=== PATIENT | male | born 1955 | race Caucasian/White ===

== ENCOUNTER 2016-05-15 12:53 | Inpatient (IN) | payer MEDICAID ==
--- NOTE | 2016-05-15 13:22 | EDPHY ---
H & P Time Seen by Provider: 05/15/16 13:14 HPI/ROS: CHIEF COMPLAINT: Shortness of breath and cough. HISTORY OF PRESENT ILLNESS: This is a 61-year-old male with a history of pneumonia who presents with one week of shortness of breath. Onset of a productive cough 1 week ago. The shortness of breath began as chest congestion a week ago and has gradually worsened since then. He is now short of breath at rest. Similar to prior episode of pneumonia. He did not get a flu shot this year. He denies fever, abdominal pain or other complaints. He is a heavy smoker. REVIEW OF SYSTEMS: A complete 10-point review of systems was performed and is negative except for those items mentioned in the HPI. Past Medical/Surgical History: Hypertension, hernia surgery. Social History: Lives in [place] Smoking Status: Heavy smoker Physical Exam: General Appearance: Alert, nontoxic-appearing Eyes: Pupils equal and round, no conjunctival pallor or injection ENT, Mouth: Mucous membranes moist Neck: Normal inspection Respiratory: Diffuse expiratory wheezing especially at left base. Cardiovascular: Regular rate and rhythm Gastrointestinal: Abdomen is soft and non-tender Neurological: A&O, nonfocal exam Skin: Warm and dry, no rash Extremities: Nontender, no pedal edema Psychiatric: Mood and affect normal Constitutional: Initial Vital Signs Temperature (C) 37.7 C 05/15/16 13:07 Heart Rate 91 05/15/16 13:07 Respiratory Rate 18 05/15/16 13:07 Blood Pressure 141/104 H 05/15/16 13:07 O2 Sat (%) 94 05/15/16 13:07 O2 Delivery Mode Nasal Cannula O2 (L/minute) 4 Allergies/Adverse Reactions: lisinopril Allergy (Unknown, Verified 12/05/12 13:55) meperidine HCl [From Demerol] Allergy (Unknown, Verified 12/05/12 13:55) Home Medications: Medication Instructions Recorded Diltiazem HCl [Cartia XT 240mg] 240 mg PO DAILY 05/15/16 Fluticasone/Salmeter 250/50Mcg 1 puffs IH BID 05/15/16 [Advair 250/50 (*)] Tiotropium Inhaler [Spiriva 18 mcg IH HS 05/15/16 Handihaler] Medical Decision Making - Diagnostics Imaging: Chest x-ray reviewed by me reveals right lower lobe infiltrate. ED Course/Re-evaluation: This patient presents with hypoxia, bronchospasm and likely pneumonia. An IV was established and labs ordered. A DuoNeb and Solu-Medrol 125 mg IV given. Chest x-ray reveals a right-sided infiltrate. Decreased wheezing after the DuoNeb. 1345: WBC elevated at 13.85. Lactic acid elevated at 2.2. Severe sepsis declared. IV fluids given per the sepsis protocol. Levaquin 750 mg IV given. I consulted with the hospitalist at this time. Admission was accepted to Med/ Surg with Dr. Frost. 1445: Repeat lactate acid level is 1.3. No episodes of hypotension or tachycardia while in the emergency department. Differential Diagnosis: Differential diagnosis includes though it is not limited to pneumothorax, pulmonary embolism, aortic dissection, pericarditis, acute coronary syndrome. - Data Points Laboratory Results: Laboratory Results 05/15/16 12:59 05/15/16 12:59 Medications Given: Discontinued Medications Albuterol/Ipratropium (Duoneb) 3 ml IH EDNOW ONE Stop: 05/15/16 13:44 Last Admin: 05/15/16 14:06 Dose: 3 ml Levofloxacin/Dextrose (Levaquin 750 Mg (Premix)) 150 mls @ 100 mls/hr IV EDNOW ONE PRN Reason: Protocol Stop: 05/15/16 15:11 Last Admin: 05/15/16 15:28 Dose: 150 mls Influenza Virus Vaccine Quadrival (Fluarix Quad [id number] Syringe) 0.5 ml IM .ONCE ONE Stop: 05/15/16 21:01 Last Admin: 05/15/16 23:31 Dose: Not Given Methylprednisolone Sodium Succinate (Solu-Medrol) 125 mg IVP EDNOW ONE Stop: 05/15/16 13:44 Last Admin: 05/15/16 14:06 Dose: 125 mg Pneumococcal Polyvalent Vaccine (Pneumovax 23) 0.5 ml IM .ONCE ONE Stop: 05/15/16 21:01 Last Admin: 05/15/16 23:28 Dose: Not Given Sodium Chloride (Ns *For Sepsis Order Set Only*) 1,851 ml IV EDNOW ONE Stop: 05/15/16 13:43 Last Admin: 05/15/16 14:06 Dose: 1,851 ml Departure - Departure Disposition: [facility] Acute Clinical Impression: Severe sepsis, Chronic obstructive pulmonary disease with acute exacerbation Right lower lobe pneumonia Qualifiers: Qualifier Code: (J18.1) Lobar pneumonia, unspecified organism Condition: Fair Report Scribed for: Adia Kimball Report Scribed by: Cristóbal Solis Date of Report: 05/15/16 Time of Report: 13:22 Physician Review and Approval Statement: 05/15/16 13:22 Portions of this note were transcribed by a medical charge entry specialist. I personally performed a history, physical exam, medical decision making, and confirmed accuracy of information the transcribed note.
[2016-05-15 13:25] LABS: % IMMATURE GRANULYOCYTES 0.8 % (0.0-1.1); ABSOLUTE IMMATURE GRANULOCYTES 0.11 10^3/uL (0.00-0.10); ADD DIFF? NO; ADD MORPH? NO; ADD SCAN? NO; ATYPICAL LYMPHOCYTE FLAG 10 (0-99); FRAGMENT RBC FLAG 0 (0-99); HEMATOCRIT 40.6 % (40.0-51.0); HEMOGLOBIN 14.8 g/dL (13.7-17.5); LEFT SHIFT FLG 10 (0-99); LIPEMIA HEMOLYSIS FLAG 90 (0-99); MEAN CELL HEMOGLOBIN 34.2 pg (27.9-34.1); MEAN CELL HEMOGLOBIN CONCENTR. 36.5 g/dL (32.4-36.7); MEAN CELL VOLUME 93.8 fL (81.5-99.8); MEAN PLATELET VOLUME 8.8 fL (8.7-11.7); PLATELET CLUMPS FLAG 30 (0-99); PLATELET COUNT 331 10^3/uL (150-400); RED BLOOD CELL COUNT 4.33 10^6/uL (4.40-6.38)
[2016-05-15] MEDS ORDERED: NS 1,000 ML BAG *FOR SEPSIS ORDER SET ONLY IV ONE (13:42)
[2016-05-15] MEDS ORDERED: IPRATROPIUM/ALBUTEROL 3 ML DEYVIAL IH ONE (13:43)
[2016-05-15] MEDS ORDERED: methylPREDNISolone SOD SUCC 125 MG/2 ML VIAL IVP ONE (13:43)
[2016-05-15 13:44] LABS: ANION GAP 11 mEq/L (8-16); BILIRUBIN,TOTAL 0.8 mg/dL (0.1-1.4); CALCIUM 8.5 mg/dL (8.5-10.4); CARBON DIOXIDE 30 mEq/l (22-31); CHLORIDE 86 mEq/L (97-110); CREATININE 0.5 mg/dL (0.7-1.3); GLOMERULAR FILTRATION RATE > 60; GLUCOSE 93 mg/dL (70-100); POTASSIUM 3.8 mEq/L (3.5-5.2); SODIUM 127 mEq/L (134-144)
--- NOTE | 2016-05-15 14:02 | DX ---
PA and lateral chest - May 15, 2016 History: Hypoxia, possible pneumonia. Comparison: PA and lateral chest November 27, 2014, CT chest November 19, 2014. Findings: There is diffuse interstitial prominence with patchy opacities in the right midlung. There is no pneumothorax or pleural effusion. Heart size is normal. Old healed rib fractures are present. Impression: Patchy opacities in the right midlung suspicious for pneumonia superimposed on underlying emphysema.
[2016-05-15 14:20] LABS: LACGHOST ORDER
[2016-05-15 14:41] LABS: INR 1.13 (0.83-1.16); PROTIME(PATIENT) 14.4 SEC (12.0-15.0)
[2016-05-15 14:42] LABS: APTT 25.8 SEC (23.0-38.0)
[2016-05-15] MEDS ORDERED: ONDANSETRON 4 MG/2 ML VIAL IVP PRN (15:09)
[2016-05-15] MEDS ORDERED: ACETAMINOPHEN 325 MG TAB PO PRN (15:09)
[2016-05-15] MEDS ORDERED: ALBUTEROL 3 ML DEYVIAL IH PRN (15:09)
--- NOTE | 2016-05-15 16:04 | PDGENHP ---
History and Physical History and Physical: HISTORY AND PHYSICAL ADMISSION NOTE CC: Shortness of breath HISTORY: Onset of cough and dyspnea a week ago with rapid progression of the dyspnea to the point it is very difficult to walk across room. No chest pain, palp's, leg pain or swelling, orthopnea. He is a smoker with copd, no heart disease. Still smoking which he started as teenager. Lives in [facility]. No fever. No flu vaccine and no hx of pneumovaccine. ROS:No nausea, chills or sweats. The rest of a 10 system review is negative. PAST MEDICAL HISTORY: COPD pneumonia Severe hyponatremia, with sodium of 110 FAMILY MEDICAL HISTORY: COPD, alcohol use SOCIAL HISTORY: Ongoing tobacco use and heavy alcohol use, no street drugs, lives [place] in [place] MEDICATIONS: Home med list is reconciled by pharmacy and I have reviewed the list and ordered appropriate meds. Ipatrop. inhaler held as he will get scheduled duonebs. 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 No CHF, mass, effusion. There are some subtle densities in the right lower lobe that could potentially be infiltrate. ASSESSMENT: DIAGNOSES: # ACUTE RESP FAILURE, HYPOXEMIC # COPD EXACERBATION # SUSPECTED LOWER RESP INFECTION, POSSIBLE COMMUNITY AQUIRED PNEUMONIA (CXR EQUIVACOL) # HYPONATREMIA, APPROXIMATELY EUVOLEMIC WITH PAST HISTORY OF SODIUM LOW 110 # I DO NOT THINK HE HAS SEPSIS # ONGOING TOBACCO ABUSE PLANS: -inpt admission, will need more than 48 hours inpt care to be safe for DC back to home at altitude -yanci marte (cxs are done) -bronchodilators, steroids, chest PT -dvt prophylaxis including lovenox -oral fluid restriction, and follow sodium closely -Thiamin replacement therapy and follow closely for any signs of potential alcohol withdrawal -Check TSH I have reviewed the patient's case in detail with Dr. Adia Kimball I have reviewed the patient's past medical records as part of this assessment, including past hospital records including physician notes, laboratory data
[2016-05-15] MEDS: IPRATROPIUM/ALBUTEROL 3 ML DEYVIAL IH SCH ×2 (17:16→21:44)
[2016-05-15] MEDS: THIAMINE HCL 100 MG TAB PO SCH (17:32)
[2016-05-15] MEDS ORDERED: PNEUMOCOCCAL 0.5ML VACCINE VIAL IM ONE (21:00)
[2016-05-15] MEDS ORDERED: FLU VACC QS 2016-17(3-64YR)/PF 0.5 ML SYR (FLUARIX QUAD) IM ONE (21:00)
[2016-05-15] MEDS: FLUTICASONE/SALMETER 250/50MCG DISKUS IH SCH (22:53)
[2016-05-15] MEDS: ZOLPIDEM TARTRATE 5 MG TAB PO PRN (23:19)
[2016-05-16] MEDS ORDERED: BENZONATATE 100 MG CAP PO PRN (01:22)
[2016-05-16] MEDS ORDERED: guaiFENesin/CODEINE PHOS 10 ML UDCUP PO PRN (01:22)
[2016-05-16] MEDS: IPRATROPIUM/ALBUTEROL 3 ML DEYVIAL IH SCH ×4 (05:44→21:31)
[2016-05-16 05:46] LABS: % IMMATURE GRANULYOCYTES 1.4 % (0.0-1.1); ABSOLUTE IMMATURE GRANULOCYTES 0.14 10^3/uL (0.00-0.10); ADD DIFF? NO; ADD MORPH? NO; ADD SCAN? NO; ATYPICAL LYMPHOCYTE FLAG 30 (0-99); FRAGMENT RBC FLAG 0 (0-99); HEMATOCRIT 36.9 % (40.0-51.0); HEMOGLOBIN 13.1 g/dL (13.7-17.5); LEFT SHIFT FLG 40 (0-99); LIPEMIA HEMOLYSIS FLAG 90 (0-99); MEAN CELL HEMOGLOBIN 34.3 pg (27.9-34.1); MEAN CELL HEMOGLOBIN CONCENTR. 35.5 g/dL (32.4-36.7); MEAN CELL VOLUME 96.6 fL (81.5-99.8); MEAN PLATELET VOLUME 8.6 fL (8.7-11.7); PLATELET CLUMPS FLAG 10 (0-99); PLATELET COUNT 256 10^3/uL (150-400); RED BLOOD CELL COUNT 3.82 10^6/uL (4.40-6.38)
[2016-05-16 06:09] LABS: ANION GAP 9 mEq/L (8-16); CALCIUM 8.6 mg/dL (8.5-10.4); CARBON DIOXIDE 30 mEq/l (22-31); CHLORIDE 90 mEq/L (97-110); CREATININE 0.5 mg/dL (0.7-1.3); GLOMERULAR FILTRATION RATE > 60; GLUCOSE 150 mg/dL (70-100); POTASSIUM 3.4 mEq/L (3.5-5.2); SODIUM 129 mEq/L (134-144)
[2016-05-16] MEDS: THIAMINE HCL 100 MG TAB PO SCH (09:10)
[2016-05-16] MEDS: DILTIAZEM XR 240 MG CAP PO SCH (09:10)
[2016-05-16] MEDS: predniSONE 20 MG TAB PO SCH (09:10)
[2016-05-16] MEDS: ENOXAPARIN 40 MG/0.4 ML SYR SC SCH (09:11)
[2016-05-16] MEDS: AZITHROMYCIN IV 500 MG in D5W 250 ML IV SCH (09:46)
[2016-05-16] MEDS: FLUTICASONE/SALMETER 250/50MCG DISKUS IH SCH ×2 (12:06→21:31)
--- NOTE | 2016-05-16 19:06 | HOSPPROG ---
Hospitalist Progress Note Assessment/Plan: DIAGNOSIS: # ACUTE RESP FAILURE, HYPOXEMIC # COPD EXACERBATION # SUSPECTED LOWER RESP INFECTION, POSSIBLE COMMUNITY AQUIRED PNEUMONIA (CXR EQUIVACOL) # HYPONATREMIA, APPROXIMATELY EUVOLEMIC WITH PAST HISTORY OF SODIUM LOW 110 # I DO NOT THINK HE HAS SEPSIS # ONGOING TOBACCO ABUSE Overall there is slight improvement from yesterday. No signs of acute complications. PLANS: -continue current antibiotics -continue current pulmonary medications and pulmonary toilet -attempt ambulation later today if he feels well enough -continue oral fluid restriction and monitor sodium SUBJECTIVE: Slightly less dyspnea today with less cough. Cough is still nonproductive. No chest pain no fever symptoms OBJECTIVE Vitals reviewed: Still requiring oxygen, remains tachycardic, Exam: alert oriented skin warm dry color ok resps not labored lungs very diminished breath sounds with prolonged expiration heart regular abd soft nondistended nontender, bowel sounds present limbs warm, no edema iv site ok Laboratory data: Sodium is a bit better today labs otherwise stable Objective: Vital Signs Temp Pulse Resp BP Pulse Ox 36.9 C 88 18 124/83 H 95 05/16/16 16:00 05/16/16 16:43 05/16/16 16:43 05/16/16 16:00 05/16/16 16:43 Laboratory Results 05/16/16 04:57 05/16/16 04:57 05/15/16 05/16/16 05/17/16 06:59 06:59 06:59 Intake Total 1200 700 Output Total 2450 850 Balance -1250 -150 PT 14.4 SEC (12.0-15.0) 05/15/16 14:20 INR 1.13 (0.83-1.16) 05/15/16 14:20 ICD10 Worksheet Patient Problems: Problems Problem Status Diagnosed Chronic obstructive pulmonary disease with acute exacerbation Acute Right lower lobe pneumonia Acute Severe sepsis Acute Rib fractures Acute
[2016-05-16] MEDS: ZOLPIDEM TARTRATE 5 MG TAB PO PRN (22:20)
[2016-05-17 05:36] LABS: ANION GAP 8 mEq/L (8-16); CALCIUM 8.9 mg/dL (8.5-10.4); CARBON DIOXIDE 33 mEq/l (22-31); CHLORIDE 92 mEq/L (97-110); CREATININE 0.5 mg/dL (0.7-1.3); GLOMERULAR FILTRATION RATE > 60; GLUCOSE 115 mg/dL (70-100); POTASSIUM 3.3 mEq/L (3.5-5.2); SODIUM 133 mEq/L (134-144)
[2016-05-17] MEDS: IPRATROPIUM/ALBUTEROL 3 ML DEYVIAL IH SCH ×4 (06:13→20:47)
[2016-05-17] MEDS: predniSONE 20 MG TAB PO SCH (08:04)
[2016-05-17] MEDS: DILTIAZEM XR 240 MG CAP PO SCH (08:05)
[2016-05-17] MEDS: THIAMINE HCL 100 MG TAB PO SCH (08:06)
[2016-05-17] MEDS: ENOXAPARIN 40 MG/0.4 ML SYR SC SCH (08:07)
[2016-05-17] MEDS: AZITHROMYCIN IV 500 MG in D5W 250 ML IV SCH (09:10)
[2016-05-17] MEDS: FLUTICASONE/SALMETER 250/50MCG DISKUS IH SCH ×2 (09:43→20:47)
--- NOTE | 2016-05-17 15:32 | HOSPPROG ---
Hospitalist Progress Note Assessment/Plan: 61-year-old male presents emergency room complaints of shortness of breath and cough. This is my 1st encounter with the patient, chart reviewed. Patient discussed with Dr. Mingo Mejía. # ACUTE RESP FAILURE, HYPOXEMIC Continue supplemental oxygen Still on 4 L Continue supportive management Told patient he may require long-term oxygen therapy he is not open to this He lives in [place] at elevated altitude # COPD EXACERBATION Continue prednisone Still having wheezing # SUSPECTED LOWER RESP INFECTION, POSSIBLE COMMUNITY AQUIRED PNEUMONIA (CXR EQUIVACOL) Continue antibiotic therapy # HYPONATREMIA, APPROXIMATELY EUVOLEMIC WITH PAST HISTORY OF SODIUM LOW 110 Better today Responding to fluid Likely at baseline # ONGOING TOBACCO ABUSE Patient aware of consequences Tobacco cessation education provided No signs of acute complications. PLANS: -continue current antibiotics -continue current pulmonary medications and pulmonary toilet -attempt ambulation later today if he feels well enough -continue oral fluid restriction and monitor sodium Subjective: Feeling better today. Still having some shortness of breath with significant coughing. Still having severe weakness and inability to move at baseline. Objective: Vital Signs Temp Pulse Resp BP Pulse Ox 36.9 C 101 H 20 135/80 H 90 L 05/17/16 12:00 05/17/16 12:00 05/17/16 12:00 05/17/16 12:00 05/17/16 12:00 Laboratory Results 05/16/16 04:57 05/17/16 05:13 05/16/16 05/17/16 05/18/16 05:59 05:59 05:59 Intake Total 1200 2200 500 Output Total 2450 3075 1100 Balance -1250 -875 -600 PT 14.4 SEC (12.0-15.0) 05/15/16 14:20 INR 1.13 (0.83-1.16) 05/15/16 14:20 - Physical Exam Constitutional: appears nourished, not in pain, chronically ill appearing Eyes: PERRL, anicteric sclera, EOMI Ears, Nose, Mouth, Throat: moist mucous membranes, hearing normal, ears appear normal Cardiovascular: tachycardia, No JVD, No edema Respiratory: no respiratory distress, reduced air movement, expiratory wheeze Gastrointestinal: normoactive bowel sounds, No tenderness, No ascites Skin: warm, normal color, No erythema Musculoskeletal: normal joint ROM, no joint effusions, generalized weakness Neurologic: AAOx3 Psychiatric: not anxious, not encephalopathic, thought process linear ICD10 Worksheet Patient Problems: Problems Problem Status Diagnosed Chronic obstructive pulmonary disease with acute exacerbation Acute Right lower lobe pneumonia Acute Severe sepsis Acute Rib fractures Acute
[2016-05-17] MEDS ORDERED: POTASSIUM CL 20 MEQ TAB PO ONE (16:00)
[2016-05-17] MEDS: ZOLPIDEM TARTRATE 5 MG TAB PO PRN (22:30)
[2016-05-18] MEDS: IPRATROPIUM/ALBUTEROL 3 ML DEYVIAL IH SCH ×4 (06:09→22:03)
[2016-05-18] MEDS: FLUTICASONE/SALMETER 250/50MCG DISKUS IH SCH ×2 (06:17→22:03)
--- NOTE | 2016-05-18 08:59 | HOSPPROG ---
Hospitalist Progress Note Assessment/Plan: 61-year-old male presents emergency room complaints of shortness of breath and cough. # acute respiratory failure /hypoxemia * he persistently needs 4 L,tachycardic * will get a CTA * he also lives in [place] at elevated altitude * will likely need oxygen at discharge # suspected lower respiratory infection * on azithromycin and ceftriaxone # COPD exacerbation /emphysema * on steroids and nebulizers # hyponatremia * recheck labs # nicotine dependence * recommended cessation /patient said he has cut way back # plan. Get a CTA today, continued duo nebs. Will discuss with patient that he likely needs oxygen around the clock Subjective: Ubaldo has no specific complaints/ frustrated about needing oxygen. Objective: Vital Signs Temp Pulse Resp BP Pulse Ox 37.1 C 104 H 16 128/95 H 93 05/18/16 08:00 05/18/16 08:00 05/18/16 08:00 05/18/16 08:00 05/18/16 08:00 Laboratory Results 05/16/16 04:57 05/17/16 05:13 05/17/16 05/18/16 05/19/16 05:59 05:59 05:59 Intake Total 2200 1600 336 Output Total 3075 2300 Balance -875 -700 336 PT 14.4 SEC (12.0-15.0) 05/15/16 14:20 INR 1.13 (0.83-1.16) 05/15/16 14:20 - Physical Exam Constitutional: no apparent distress, chronically ill appearing Eyes: PERRL Ears, Nose, Mouth, Throat: hearing normal Cardiovascular: regular rate and rhythym Respiratory: no respiratory distress, reduced air movement (bibasilar) Gastrointestinal: normoactive bowel sounds Skin: warm Musculoskeletal: full muscle strength Neurologic: AAOx3 Psychiatric: interacting appropriately, not anxious ICD10 Worksheet Patient Problems: Problems Problem Status Diagnosed Chronic obstructive pulmonary disease with acute exacerbation Acute Right lower lobe pneumonia Acute Severe sepsis Acute Rib fractures Acute
[2016-05-18] MEDS ORDERED: PNEUMOCOCCAL 0.5ML VACCINE VIAL IM ONE (09:26)
[2016-05-18] MEDS: DILTIAZEM XR 240 MG CAP PO SCH (09:35)
[2016-05-18] MEDS: predniSONE 20 MG TAB PO SCH (09:35)
[2016-05-18] MEDS: AZITHROMYCIN 250 MG TAB PO SCH (09:36)
[2016-05-18] MEDS: THIAMINE HCL 100 MG TAB PO SCH (09:36)
[2016-05-18] MEDS: ENOXAPARIN 40 MG/0.4 ML SYR SC SCH (09:36)
[2016-05-18 09:54] LABS: % IMMATURE GRANULYOCYTES 1.2 % (0.0-1.1); ABSOLUTE IMMATURE GRANULOCYTES 0.13 10^3/uL (0.00-0.10); ADD DIFF? NO; ADD MORPH? NO; ADD SCAN? NO; ATYPICAL LYMPHOCYTE FLAG 30 (0-99); FRAGMENT RBC FLAG 0 (0-99); HEMATOCRIT 43.2 % (40.0-51.0); LEFT SHIFT FLG 10 (0-99); LIPEMIA HEMOLYSIS FLAG 90 (0-99); MEAN CELL HEMOGLOBIN 33.3 pg (27.9-34.1); MEAN CELL HEMOGLOBIN CONCENTR. 34.7 g/dL (32.4-36.7); MEAN PLATELET VOLUME 7.9 fL (8.7-11.7); PLATELET CLUMPS FLAG 0 (0-99); PLATELET COUNT 336 10^3/uL (150-400); RED CELL DISTRIBUTION WIDTH 12.3 % (11.5-15.2)
[2016-05-18] MEDS ORDERED: FLU VACC QS 2016-17(3-64YR)/PF 0.5 ML SYR (FLUARIX QUAD) IM ONE (11:30)
[2016-05-18 11:34] LABS: ANION GAP 10 mEq/L (8-16); CALCIUM 9.2 mg/dL (8.5-10.4); CARBON DIOXIDE 32 mEq/l (22-31); CHLORIDE 90 mEq/L (97-110); CREATININE 0.6 mg/dL (0.7-1.3); GLOMERULAR FILTRATION RATE > 60; GLUCOSE 87 mg/dL (70-100); POTASSIUM 3.9 mEq/L (3.5-5.2); SODIUM 132 mEq/L (134-144)
[2016-05-18] MEDS ORDERED: IOPAMIDOL (ISOVUE 370) 100 ML BTL IV ONE (13:01)
--- NOTE | 2016-05-18 14:18 | CT ---
CT Chest Angiogram Comparison: CT October 2014 and chest x-ray May 15, 2016. Indication: Tachycardic. Hypoxic. Chest pain. Technique: Thinly collimated multidetector helical CT imaging was performed through the chest while 90 mL of Isovue-370 were injected intravenously without complication. The images were then transferr ed to an independent workstation where multiplanar reconstructions were performed. Dose reduction eduardo hniques were utilized. Findings: CT Chest Angiogram: The pulmonary arterial system is well opacified. No intraluminal filling defect s to suggest acute or chronic thrombopulmonary embolic disease. The thoracic aorta is normal caliber . No aneurysm or dissection. CT Chest: There is peripheral reticular nodular appearance in the posterior right upper lobe and post erior lateral right upper lobe. Mild peribronchial wall thickening bilaterally. Vascular calcificatio ns are seen in the coronary arteries. Heart size is normal. No evidence for pericardial effusion. No significant mediastinal or hilar lymphadenopathy. Old healed multiple rib fractures are seen on the r ight. Degenerative change thoracic spine. No evidence for pleural effusion or pneumothorax. Impression: 1. No evidence of thrombopulmonary embolic disease. 2. Mild peripheral reticular nodular appearance in the right upper lobe and right lower lobe which co uld represent atypical pneumonia or interstitial lung disease or small airways disease. Mild bronchit is. 3. Evidence of vascular disease in the coronary arteries. 4. Other chronic findings as above.
[2016-05-18] MEDS: ZOLPIDEM TARTRATE 5 MG TAB PO PRN (22:07)
[2016-05-19] MEDS: IPRATROPIUM/ALBUTEROL 3 ML DEYVIAL IH SCH ×4 (06:11→21:33)
[2016-05-19] MEDS: FLUTICASONE/SALMETER 250/50MCG DISKUS IH SCH ×2 (06:11→21:34)
[2016-05-19] MEDS: ENOXAPARIN 40 MG/0.4 ML SYR SC SCH (09:09)
[2016-05-19] MEDS: DILTIAZEM XR 240 MG CAP PO SCH (09:11)
[2016-05-19] MEDS: THIAMINE HCL 100 MG TAB PO SCH (09:12)
[2016-05-19] MEDS: predniSONE 20 MG TAB PO SCH (09:13)
[2016-05-19] MEDS: AZITHROMYCIN 250 MG TAB PO SCH (09:13)
--- NOTE | 2016-05-19 12:09 | HOSPPROG ---
Hospitalist Progress Note Assessment/Plan: 61-year-old male presents emergency room complaints of shortness of breath and cough. # acute respiratory failure /hypoxemia * he persistently needs 4 L,tachycardic * CTA shows no PE * he also lives in [place] at elevated altitude * will need oxygen at discharge * get a repeat chest xray today # suspected lower respiratory infection * on azithromycin and ceftriaxone # COPD exacerbation /emphysema * on steroids and nebulizers /change steroids to IV to see if he improves # hyponatremia * Na is 132 # nicotine dependence * recommended cessation /patient said he has cut way back # plan. 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 Subjective: Ubaldo has no specific complaints/ concerned about working and needing oxygen. Objective: Vital Signs Temp Pulse Resp BP Pulse Ox 37.2 C 106 H 15 116/85 H 91 L 05/19/16 10:37 05/19/16 11:04 05/19/16 11:04 05/19/16 10:37 05/19/16 11:04 Laboratory Results 05/18/16 09:40 05/18/16 09:40 05/18/16 05/19/16 05/20/16 05:59 05:59 05:59 Intake Total 1600 1556 Output Total 2300 1820 250 Balance -700 -264 -250 PT 14.4 SEC (12.0-15.0) 05/15/16 14:20 INR 1.13 (0.83-1.16) 05/15/16 14:20 - Physical Exam Constitutional: not in pain, chronically ill appearing Eyes: PERRL Ears, Nose, Mouth, Throat: hearing normal Cardiovascular: regular rate and rhythym, tachycardia Respiratory: no respiratory distress, reduced air movement, expiratory wheeze ( scattered through out) Gastrointestinal: normoactive bowel sounds Skin: warm Musculoskeletal: no muscle tenderness Neurologic: AAOx3 Psychiatric: interacting appropriately, not anxious, not encephalopathic ICD10 Worksheet Patient Problems: Problems Problem Status Diagnosed Chronic obstructive pulmonary disease with acute exacerbation Acute Right lower lobe pneumonia Acute Severe sepsis Acute Rib fractures Acute
[2016-05-19] MEDS: methylPREDNISolone SOD SUCC 125 MG/2 ML VIAL IVP SCH ×2 (12:57→18:25)
--- NOTE | 2016-05-19 14:29 | DX ---
PA and lateral chest x-ray 1321 hours. History: Pneumonia. Sepsis. Increased oxygen requirements. Findings: Comparison to prior CT chest study from May 18, 2016. Heart size and pulmonary vasculature remain within normal limits. Prominent perihilar interstitial ma rkings are once again noted right side greater than left. Persistent thickening of bronchial lacy ar e noted. There is no new consolidation, effusion, or pneumothorax. The lungs remain hyperexpanded. Ol d healed fractures are once again seen bilaterally involving ribs. Impression: 1. Persistent prominent perihilar interstitial markings and peribronchial cuffing. Findings are nonsp ecific but can be seen with bronchitis, viral process, or reactive airways disease. Rule out intersti tial infiltrate/pneumonia. 2. Hyperexpanded lungs suggestive of underlying COPD and emphysema. 3. Bilateral healed rib fractures noted.
[2016-05-19] MEDS: MELATONIN 3 MG TAB PO SCH (21:56)
[2016-05-20] MEDS: methylPREDNISolone SOD SUCC 125 MG/2 ML VIAL IVP SCH ×4 (00:28→17:11)
[2016-05-20] MEDS: IPRATROPIUM/ALBUTEROL 3 ML DEYVIAL IH SCH ×4 (05:14→21:37)
[2016-05-20] MEDS: AZITHROMYCIN 250 MG TAB PO SCH (07:56)
[2016-05-20] MEDS: THIAMINE HCL 100 MG TAB PO SCH (07:56)
[2016-05-20] MEDS: DILTIAZEM XR 240 MG CAP PO SCH (07:56)
[2016-05-20] MEDS: ENOXAPARIN 40 MG/0.4 ML SYR SC SCH (07:57)
[2016-05-20] MEDS: FLUTICASONE/SALMETER 250/50MCG DISKUS IH SCH ×2 (09:37→21:37)
--- NOTE | 2016-05-20 15:50 | HOSPPROG ---
Hospitalist Progress Note Assessment/Plan: 61-year-old male presents emergency room complaints of shortness of breath and cough. # acute respiratory failure /hypoxemia * he persistently needs 4 L * CTA shows no PE * he also lives in [place] at elevated altitude * will need oxygen at discharge * portable tank to be ordered for home use/ patient is ambulatory in his home # suspected lower respiratory infection * on azithromycin and ceftriaxone * will change to levaquin for tomorrow # COPD exacerbation /emphysema * on steroids and nebulizers /change steroids to IV without much improvement * will change to oral steroid in the morning # hyponatremia * Na is 132 # nicotine dependence * recommended cessation /patient said he has cut way back # plan. 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 Information in regards to disability was given to the patient. Subjective: Ubaldo is short of breath, but notes this has been ongoing for multiple years. Objective: Vital Signs Temp Pulse Resp BP Pulse Ox 36.6 C 110 H 18 143/93 H 93 05/20/16 11:45 05/20/16 11:45 05/20/16 11:45 05/20/16 11:45 05/20/16 11:45 Microbiology 05/15/16 15:05 Blood Culture - Final Blood 05/15/16 14:20 Blood Culture - Final Blood Laboratory Results 05/18/16 09:40 05/18/16 09:40 05/19/16 05/20/16 05/21/16 05:59 05:59 05:59 Intake Total 1556 1245 Output Total 1820 2100 500 Balance -264 -855 -500 PT 14.4 SEC (12.0-15.0) 05/15/16 14:20 INR 1.13 (0.83-1.16) 05/15/16 14:20 - Physical Exam Constitutional: not in pain, chronically ill appearing Eyes: PERRL Ears, Nose, Mouth, Throat: hearing normal Cardiovascular: regular rate and rhythym, no murmur, rub, or gallop Respiratory: no respiratory distress, expiratory wheeze (scattered) Gastrointestinal: normoactive bowel sounds, soft, non-tender abdomen Skin: warm Musculoskeletal: no muscle tenderness Neurologic: AAOx3 Psychiatric: interacting appropriately, not anxious ICD10 Worksheet Patient Problems: Problems Problem Status Diagnosed Chronic obstructive pulmonary disease with acute exacerbation Acute Right lower lobe pneumonia Acute Severe sepsis Acute Rib fractures Acute
[2016-05-20] MEDS: MELATONIN 3 MG TAB PO SCH (21:51)
[2016-05-21] MEDS: IPRATROPIUM/ALBUTEROL 3 ML DEYVIAL IH SCH ×4 (05:33→21:51)
[2016-05-21] MEDS: ENOXAPARIN 40 MG/0.4 ML SYR SC SCH (07:57)
[2016-05-21] MEDS: predniSONE 20 MG TAB PO SCH (07:57)
[2016-05-21] MEDS: THIAMINE HCL 100 MG TAB PO SCH (07:57)
[2016-05-21] MEDS: DILTIAZEM XR 240 MG CAP PO SCH (07:57)
--- NOTE | 2016-05-21 09:38 | HOSPPROG ---
Hospitalist Progress Note Assessment/Plan: 61-year-old male presents emergency room complaints of shortness of breath and cough. # acute respiratory failure /hypoxemia * his O2 needs are to 3 liters/ better * CTA shows no PE * he also lives in [place] at elevated altitude * will need oxygen at discharge * portable tank to be ordered for home use/ patient is ambulatory in his home # suspected lower respiratory infection * levaquin started today/will dc him on this for a total of 7 days # COPD exacerbation /emphysema * changed to oral steroids # hyponatremia * Na is 132 # nicotine dependence * recommended cessation /patient said he has cut way back # plan. dc tomorrow Subjective: Ubaldo is starting to feel better today. Objective: Vital Signs Temp Pulse Resp BP Pulse Ox 36.7 C 95 18 137/84 H 94 05/21/16 07:39 05/21/16 07:57 05/21/16 07:39 05/21/16 07:57 05/21/16 07:39 Microbiology 05/15/16 15:05 Blood Culture - Final Blood 05/15/16 14:20 Blood Culture - Final Blood Laboratory Results 05/18/16 09:40 05/18/16 09:40 05/20/16 05/21/16 05/22/16 05:59 05:59 05:59 Intake Total 1245 1300 Output Total 2100 1825 450 Balance -855 -525 -450 PT 14.4 SEC (12.0-15.0) 05/15/16 14:20 INR 1.13 (0.83-1.16) 05/15/16 14:20 - Physical Exam Constitutional: no apparent distress, chronically ill appearing Eyes: PERRL Ears, Nose, Mouth, Throat: hearing normal Cardiovascular: regular rate and rhythym Respiratory: no respiratory distress, reduced air movement, expiratory wheeze ( very few, lung sounds much improved since yesterday) Gastrointestinal: normoactive bowel sounds Skin: warm Musculoskeletal: full muscle strength Neurologic: AAOx3 Psychiatric: interacting appropriately ICD10 Worksheet Patient Problems: Problems Problem Status Diagnosed Chronic obstructive pulmonary disease with acute exacerbation Acute Right lower lobe pneumonia Acute Severe sepsis Acute Rib fractures Acute
[2016-05-21] MEDS: FLUTICASONE/SALMETER 250/50MCG DISKUS IH SCH ×2 (10:11→21:51)
[2016-05-21] MEDS: ZOLPIDEM TARTRATE 5 MG TAB PO PRN (22:01)
[2016-05-21] MEDS: MELATONIN 3 MG TAB PO SCH (22:01)
[2016-05-22] MEDS: IPRATROPIUM/ALBUTEROL 3 ML DEYVIAL IH SCH ×2 (06:26→11:49)
[2016-05-22] MEDS: FLUTICASONE/SALMETER 250/50MCG DISKUS IH SCH (06:28)
[2016-05-22] MEDS: DILTIAZEM XR 240 MG CAP PO SCH (08:06)
[2016-05-22] MEDS: predniSONE 20 MG TAB PO SCH (08:06)
[2016-05-22] MEDS: ENOXAPARIN 40 MG/0.4 ML SYR SC SCH (08:06)
[2016-05-22] MEDS: THIAMINE HCL 100 MG TAB PO SCH (08:07)
[2016-05-22 08:34] VITALS: BP 143/89; PULSE 100; RESP 12; TEMP 98.1; O2SAT 90
--- NOTE | 2016-05-22 09:50 | HOSPPROG ---
Hospitalist Progress Note Assessment/Plan: 61-year-old male presents emergency room complaints of shortness of breath and cough. # acute respiratory failure /hypoxemia * his O2 needs are to 2-3 liters/ better * CTA shows no PE * he also lives in [place] at [place] altitude * will need oxygen at discharge * portable tank to be ordered for home use/ patient is ambulatory in his home # suspected lower respiratory infection * levaquin started today/will dc him on 5 more doses # COPD exacerbation /emphysema * changed to oral steroids/slow wean # hyponatremia * Na is 132 # nicotine dependence * recommended cessation /patient said he has cut way back # plan. dc Subjective: Ubaldo is feeling much better today. Objective: Vital Signs Temp Pulse Resp BP Pulse Ox 36.7 C 100 12 143/89 H 90 L 05/22/16 08:33 05/22/16 08:33 05/22/16 08:33 05/22/16 08:33 05/22/16 08:33 Laboratory Results 05/18/16 09:40 05/18/16 09:40 05/21/16 05/22/16 05/23/16 05:59 05:59 05:59 Intake Total 1300 295 Output Total 1825 1850 Balance -525 -1555 PT 14.4 SEC (12.0-15.0) 05/15/16 14:20 INR 1.13 (0.83-1.16) 05/15/16 14:20 - Physical Exam Constitutional: no apparent distress, appears nourished, not in pain Eyes: PERRL Ears, Nose, Mouth, Throat: hearing normal Cardiovascular: regular rate and rhythym Respiratory: no respiratory distress, expiratory wheeze (few scattered/ lung sounds much improved and much clearer) Gastrointestinal: normoactive bowel sounds Skin: warm Musculoskeletal: full muscle strength Neurologic: AAOx3 Psychiatric: interacting appropriately, not anxious ICD10 Worksheet Patient Problems: Problems Problem Status Diagnosed Chronic obstructive pulmonary disease with acute exacerbation Acute Right lower lobe pneumonia Acute Severe sepsis Acute Rib fractures Acute
--- NOTE | 2016-05-22 12:13 | GDS ---
[f rep st] DISCHARGE SUMMARY DISCHARGE DIAGNOSES: 1. Acute hypoxic respiratory failure. 2. Suspected lower respiratory infection. 3. Chronic obstructive pulmonary disease with acute exacerbation/emphysema. 4. Hyponatremia. 5. Nicotine dependence. BRIEF HISTORY: The patient is a 61-year-old gentleman who had rapid progression of his dyspnea to the point where it was difficult to walk. He lives in the [place] area. He denies any fever or chills on admission. He was checked for influenza which was negative. He had a chest x-ray performed on admission which noted patchy opacities in the right midlung suspicious for pneumonia, superimposed on underlying emphysema. He continued not to improve during his stay and had ongoing hypoxemia as well as tachycardia. A CTA was performed which showed no thrombotic/pulmonary disease. He has mild peripheral reticular nodular appearance in the right upper lobe and right lower lobe which could represent atypical pneumonia or interstitial lung disease or small airway disease. He has mild bronchitis. He has evidence of vascular disease in the coronary arteries. He was slow to improve. He had been on 4-5 L of oxygen; today he is on 3 L with oxygen levels in the 90s. He will be discharged home with oxygen around the clock. Case Management has spoken with Dr. Bustos's office to be sure the patient gets followup. If the office does not hear from the patient, they will call him and follow up with him. HOSPITAL COURSE BY PROBLEM: 1. Acute respiratory failure/hypoxemia. This is multifactorial due to chronic obstructive pulmonary disease and emphysema, as well as a respiratory infection. He is on 3 L. A portable tank was ordered for home use because he is ambulatory. He also lives in [place] at high altitude. I explained to him to keep it at 3-4 L and to get a pulse oximeter to check himself. 2. Suspected lower respiratory infection. He was treated initially with ceftriaxone and azithromycin with little improvement. He will be discharged on Levaquin. 3. Chronic obstructive pulmonary disease with acute exacerbation/emphysema. He was treated with oral steroids and then IV steroids. I will discharge him on a very slow wean of prednisone. 4. Hyponatremia. Sodium is 132. 5. Nicotine dependence. Recommended cessation. He realizes that this is hurting his health. He is very motivated to quit smoking. PENDING LABS AND TESTS: None. CONDITION AT DISCHARGE: Stable. Blood pressure is 133/62, heart rate is 78, respiratory rate is 18, O2 saturations on 3 L are 94%, temperature is 36.6 Celsius. MEDICATIONS AT DISCHARGE: Please see the EMR. DISCHARGE INSTRUCTIONS: 1. Wear his oxygen around the clock. 2. Follow up with Dr. Bustos either today or tomorrow afternoon. 3. Take the antibiotics as prescribed and to note that Levaquin can cause tendon rupture. 4. Fully wean off the prednisone. TIME SPENT: Greater than 30 minutes discharging and coordinating care. /[id number]/MODL MTDD
== END 2016-05-22 11:48 | disposition home or self-care (01) | DRG 193 ==
LOC: EDBD → EDUNIT# → F3E 16:28
PROVIDERS: ADMIT Internal Medicine; ATTEND Internal Medicine
DX: J18.9 Pneumonia, unspecified organism (principal); J44.1 Chronic obstructive pulmonary disease with (acute) exacerbation; J96.01 Acute respiratory failure with hypoxia; E87.1 Hypo-osmolality and hyponatremia; I10 Essential (primary) hypertension; Z23 Encounter for immunization
CPT/HCPCS: 96374; 97161-GP; 97165-GO; 97530-GO; G0008; J0456; J0696; J1650; J1956; Q9967

== ENCOUNTER 2017-02-20 12:50 | Inpatient (IN) | payer MEDICAID ==
--- NOTE | 2017-02-20 13:44 | EDPHY ---
H & P Time Seen by Provider: 02/20/17 13:26 HPI/ROS: CHIEF COMPLAINT: Anemia HISTORY OF PRESENT ILLNESS: This patient is a 61 y/o male with history of hypertension arriving at the request of his primary care physician, Dr. Bustos, for evaluation of anemia and admission for blood transfusion. He visited his pcp for a routine followup, and asked about fatigue. His hematocrit was discovered to be 22. Over the last three months, he has been feeling increasingly weak to the point where he doesn' t feel like walking around. She has been mainly sitting around his home. Associated with exertional fatigue and shortness of breath. He does take ibuprofen or Tylenol, usually one tablet a day as needed for pain. He does not take aspirin or any anticoagulation. He denies any abnormal stools or blood in his stool, vomiting, or abdominal pain. No chest pain, fever, urinary complaints , or swelling in his calves or ankles. REVIEW OF SYSTEMS: A 10 point review of systems was performed and is negative with the exception of the elements mentioned in the history of present illness. Past Medical/Surgical History: 1. Hypertension 2. Hernia repair 3. Pneumonia Social History: Former smoker, quit in April. Occasional alcohol use. Lives in [place]. Smoking Status: Former smoker Physical Exam: General Appearance: Alert, appears pale. Eyes: Pupils equal and round, conjunctival pallor, no injection ENT, Mouth: Mucous membranes moist Neck: Normal inspection Respiratory: Rales at bases bilaterally Cardiovascular: Regular rate and rhythm Gastrointestinal: Abdomen is soft and non- tender Rectal: Brown stool Neurological: A&O, nonfocal, normal gait Skin: Warm and dry, no rash Extremities: Nontender, no pedal edema Psychiatric: Mood and affect normal Constitutional: Initial Vital Signs Temperature (C) 36.7 C 02/20/17 12:58 Respiratory Rate 20 02/20/17 12:58 Blood Pressure 97/47 L 02/20/17 12:58 O2 Delivery Mode Nasal Cannula O2 (L/minute) 2 Allergies/Adverse Reactions: lisinopril Allergy (Severe, Verified 02/20/17 15:48) Swelling/neck,face,throat meperidine HCl [From Demerol] Allergy (Unknown, Verified 02/20/17 15:48) Vomiting Home Medications: Medication Instructions Recorded Diltiazem HCl [Cartia XT 240mg] 240 mg PO DAILY 05/15/16 Tiotropium Inhaler [Spiriva 18 mcg IH DAILY 05/15/16 Handihaler] Acetaminophen [Tylenol 325mg (*)] 650 mg PO Q4HRS PRN #0 tab 05/22/16 Albuterol [Proventil Inhaler HFA 1 - 2 puffs IH Q4H #1 mdi 05/22/16 (*)] Ibuprofen [Motrin (*)] 800 mg PO Q7D PRN 02/20/17 Ranitidine HCl 150 mg PO DAILY 02/20/17 Medical Decision Making - Diagnostics EKG Interpretation: EKG interpreted by me reveals sinus rhythm, rate 97, multiple atrial premature complexes, borderline T abnormalities in anterior-lateral leads. Interpretation : abnormal EKG ED Course/Re-evaluation: 61 y/o male presents with severe anemia. Hematocrit 22 and stool is negative for occult blood. Unclear etiology of severe anemia, no evidence of acute hemorrhage. Risks and benefits of blood transfusion discussed and patient accepts. 1 unit packed red blood cells ordered. EKG reveals no evidence of ischemia or dysrhythmia. Occult blood negative. Hematocrit remains low at 22.5. Potassium 2.3. Potassium 40 mEq orally given. Patient stable throughout his emergency department stay. 14:[address] Handley, hospitalist. She accepts admission for severe anemia. Differential Diagnosis: Differential diagnosis includes though is not limited to upper GI bleed, esophageal varices, lower GI bleed, aplastic anemia, hemolytic anemia. - Data Points Laboratory Results: Laboratory Results 02/20/17 13:46 02/20/17 13:46 02/20/17 02/20/17 02/20/17 14:00 13:46 13:46 WBC RBC Hgb Hct MCV MCH MCHC RDW Plt Count MPV Neut % (Auto) Lymph % (Auto) [place] % (Auto) Eos % (Auto) Baso % (Auto) Nucleat RBC Rel Count Absolute Neuts (auto) Absolute Lymphs (auto) Absolute Monos (auto) Absolute Eos (auto) Absolute Basos (auto) Absolute Nucleated RBC Immature Gran % Immature Gran # Sodium 127 mEq/L L mEq/L (134-144) Potassium 2.3 mEq/L L* mEq/L (3.5-5.2) Chloride 86 mEq/L L mEq/L (97-110) Carbon Dioxide 24 mEq/l mEq/l (22-31) Anion Gap 17 mEq/L H mEq/L (8-16) BUN 16 mg/dL mg/dL (7-23) Creatinine 1.3 mg/dL mg/dL (0.7-1.3) Estimated GFR 56 Glucose 87 mg/dL mg/dL (70-100) Calcium 8.3 mg/dL L mg/dL (8.5-10.4) Iron TIBC Iron Saturation Ferritin Total Bilirubin Conjugated Bilirubin Unconjugated Bilirubin AST ALT Alkaline Phosphatase Total Protein Albumin Lipase 170 IU/L IU/L (23-300) Stool Occult Bld Scrn NEGATIVE (NEGATIVE) Patient ABO/Rh B POSITIVE Antibody Screen NEGATIVE Crossmatch IS Only See Detail 02/20/17 02/20/17 13:46 13:45 WBC 9.90 10^3/uL H 10^3/uL (3.80-9.50) RBC 2.93 10^6/uL L 10^6/uL (4.40-6.38) Hgb 7.3 g/dL L g/dL (13.7-17.5) Hct 22.5 % L % (40.0-51.0) MCV 76.8 fL L fL (81.5-99.8) MCH 24.9 pg L pg (27.9-34.1) MCHC 32.4 g/dL g/dL (32.4-36.7) RDW 16.8 % H % (11.5-15.2) Plt Count 371 10^3/uL 10^3/uL (150-400) MPV 8.9 fL fL (8.7-11.7) Neut % (Auto) 75.0 % H % (39.3-74.2) Lymph % (Auto) 10.2 % L % (15.0-45.0) Hitchcock % (Auto) 12.5 % % (4.5-13.0) Eos % (Auto) 0.6 % % (0.6-7.6) Baso % (Auto) 0.3 % % (0.3-1.7) Nucleat RBC Rel Count 0.0 % % (0.0-0.2) Absolute Neuts (auto) 7.42 10^3/uL H 10^3/uL (1.70-6.50) Absolute Lymphs (auto) 1.01 10^3/uL 10^3/uL (1.00-3.00) Absolute Monos (auto) 1.24 10^3/uL H 10^3/uL (0.30-0.80) Absolute Eos (auto) 0.06 10^3/uL 10^3/uL (0.03-0.40) Absolute Basos (auto) 0.03 10^3/uL 10^3/uL (0.02-0.10) Absolute Nucleated RBC 0.00 10^3/uL 10^3/uL (0-0.01) Immature Gran % 1.4 % H % (0.0-1.1) Immature Gran # 0.14 10^3/uL H 10^3/uL (0.00-0.10) Sodium Potassium Chloride Carbon Dioxide Anion Gap BUN Creatinine Estimated GFR Glucose Calcium Iron 15.0 mcg/dL L mcg/dL (49.0-199.0) TIBC 423 ug/dL ug/dL (260-490) Iron Saturation 4 % L % (20-55) Ferritin 12.2 ng/mL L ng/mL (17.9-464.0) Total Bilirubin 0.4 mg/dL mg/dL (0.1-1.4) Conjugated Bilirubin 0.3 mg/dL mg/dL (0.0-0.5) Unconjugated Bilirubin 0.1 mg/dL mg/dL (0.0-1.1) AST 96 IU/L H IU/L (17-59) ALT 69 IU/L IU/L (21-72) Alkaline Phosphatase 105 IU/L IU/L (38-126) Total Protein 5.7 g/dL L g/dL (6.3-8.2) Albumin 2.6 g/dL L g/dL (3.5-5.0) Lipase Stool Occult Bld Scrn Patient ABO/Rh Antibody Screen Crossmatch IS Only Medications Given: Discontinued Medications Potassium Chloride (Klor-Con) 40 meq PO EDNOW ONE Stop: 02/20/17 14:36 Last Admin: 02/20/17 15:33 Dose: 40 meq Departure - Departure Disposition: [facility] Acute Clinical Impression: Severe anemia, Hypokalemia Condition: Fair Report Scribed for: Adia Kimball Report Scribed by: Priscilla Stein Date of Report: 02/20/17 Time of Report: 13:42 Physician Review and Approval Statement: 02/20/17 13:42 Portions of this note were transcribed by a medical donation professional. I personally performed a history, physical exam, medical decision making, and confirmed accuracy of information the transcribed note.
--- NOTE | 2017-02-20 13:45 | CPEKG ---
Heart Rate: 97 RR Interval: 619 P-R Interval: 172 QRSD Interval: 84 QT Interval: 372 QTC Interval: 473 P [place]: 68 QRS [place]: -14 T Wave [place]: 71 EKG Severity - ABNORMAL ECG - EKG Impression: SINUS RHYTHM EKG Impression: MULTIPLE ATRIAL PREMATURE COMPLEXES EKG Impression: BORDERLINE T ABNORMALITIES, ANT-LAT LEADS Electronically Signed By: Adia Kimball 20-Feb-2017 17:30:10
--- NOTE | 2017-02-20 13:45 | CPEKG ---
Heart Rate: 97 RR Interval: 619 P-R Interval: 172 QRSD Interval: 84 QT Interval: 372 QTC Interval: 473 P [place]: 68 QRS [place]: -14 T Wave [place]: 71 EKG Severity - ABNORMAL ECG - EKG Impression: SINUS RHYTHM EKG Impression: MULTIPLE ATRIAL PREMATURE COMPLEXES EKG Impression: BORDERLINE T ABNORMALITIES, ANT-LAT LEADS Electronically Signed By: Adia Kimball 20-Feb-2017 17:30:10
[2017-02-20 13:50] LABS: PLATELET COUNT 371 10^3/uL (150-400)
[2017-02-20] MEDS ORDERED: ONDANSETRON 4 MG/2 ML VIAL IVP PRN (14:33)
[2017-02-20] MEDS ORDERED: ONDANSETRON DISINTEGRATING 4 MG TAB PO PRN (14:33)
[2017-02-20] MEDS ORDERED: ACETAMINOPHEN 325 MG TAB PO PRN (14:33)
[2017-02-20] MEDS ORDERED: POTASSIUM CL 20 MEQ TAB PO ONE ×3 (14:35→22:01)
--- NOTE | 2017-02-20 16:50 | GHP ---
[f rep st] HISTORY AND PHYSICAL DATE OF ADMISSION: 02/20/2017 CHIEF COMPLAINT: Fatigue, anemia. HISTORY OF PRESENT ILLNESS: A 61-year-old male with history of COPD, chronic hypoxemic respiratory failure on 2-3 L, and chronic hyponatremia, presenting by the request of his primary care doctor, Dr. Bustos in [place] for further evaluation of anemia. He was seen by his PCP and told him he has been fatigued over the last couple months. He has been intermittently dizzy. He has become more short of breath with just walking across the room. He does normally wear oxygen, but he is never this short of breath. Denies chest pain. No fevers, chills, or sweats. No nausea, vomiting, diarrhea. Uses ibuprofen 800 mg 1-2 times a week for the past year. He has had a normal appetite. Denies any weight loss. Has never had a colonoscopy. Denies hematemesis, hematochezia, or black stools. REVIEW OF SYSTEMS: I completed a 10-point review of systems, negative except as noted in HPI. PAST MEDICAL HISTORY: 1. COPD. 2. Chronic hypoxemic respiratory failure, on 2-3 L. 3. Hyponatremia. 4. Nicotine dependence. 5. Hypertension. PAST SURGICAL HISTORY: Hernia repair. FAMILY HISTORY: COPD, alcohol. Dad with stroke and [place]. SOCIAL HISTORY: Lives in [place]. He quit smoking in April 2016, smoked 45 years, a half-pack to a pack a day. Drinks at least a beer daily. HOME MEDICATIONS: Spiriva daily. Ranitidine 150 mg daily. Ibuprofen as needed. Diltiazem. Albuterol and Tylenol. ALLERGIES: 1. Lisinopril: Severe anaphylaxis. 2. Demerol: Vomiting. PHYSICAL EXAMINATION: VITAL SIGNS: Blood pressure 97 to 128 over 47 to 81, heart rate 90s, respirations 16, 98% on 2 L. Temperature 36.8. GENERAL: Lying in bed, in no acute distress. Pale. HEENT: Conjunctival pallor. CV: Regular rate and rhythm. No murmurs, gallops, or rubs, but prominent heart sounds. LUNGS: Diminished throughout, a few expiratory wheezes. ABDOMEN: Soft, nontender, nondistended. Positive bowel sounds. : No suprapubic tenderness. MUSCULOSKELETAL: 5/5 upper and lower extremity strength. NEURO: 2 through 12 intact. PSYCH: Alert and oriented x3. LABS: WBC 9, hemoglobin 7.3, hematocrit 22, platelets 371. H and H in April 2016 were 15 and 43. MCV is 76. Sodium 127 (baseline 125-132), potassium is 2.4, chloride 86, anion gap 17, creatinine 1.3 (baseline 0.5 ) Fecal occult blood negative. EKG, personally reviewed by me, ST flattening in I, aVL, ST depression in V2, 1 box. ASSESSMENT AND PLAN: 1. Symptomatic microcytic anemia: A differential includes ulcer with chronic Advil use, malignancy. Patient is being transfused 2 units now. Check iron studies, liver function. GI plans for colonoscopy. Hold non-steroidal anti- inflammatory drugs. Start PPI. 2. Hypokalemia: Potassium is 2.3. Was given dose in the emergency room. Monitor on telemetry and repeat this evening. Suspect decreased oral intake. Check mag level. Place on electrolyte protocol. 3. Chronic hyponatremia, mildly dry on exam as well as a mildly elevated creatinine 1.3. We will hydrate. 4. Acute kidney injury. Creatinine is 1.3. Start IVFs, 5. Alcohol use: Drinks at least a beer a day. Will monitor for withdrawal, none now. 6. Chronic obstructive pulmonary disease. No evidence of exacerbation. Continue home inhalers. 7. Chronic hypoxemic respiratory failure: He is at his baseline. 8. Diet: Regular. 9. Deep venous thrombosis prophylaxis: Sequential compression devices. 10. Patient warrants observation admission given acute anemia warranting blood transfusion, telemetry for electrolyte disturbances. /[id number]/MODL MTDD
[2017-02-20] MEDS ORDERED: PEG 3350/NA SULF,BICARB,CL/KCL (GAVILYTE-G) 4000 ML BTL PO ONE (16:51)
[2017-02-20] MEDS ORDERED: NS 1,000 ML IV SCH (17:30)
[2017-02-20] MEDS: ALBUTEROL IH SCH ×2 (18:10→21:34)
[2017-02-20] MEDS ORDERED: POTASSIUM Cl (KCl) 100 ML IV SCH (21:45)
[2017-02-20] MEDS ORDERED: PROTOCOL POTASSIUM 1 DOSE MISC PRN (22:00)
[2017-02-20] MEDS ORDERED: PROTOCOL MAGNESIUM 1 DOSE IV PRN (22:00)
[2017-02-20] MEDS: PANTOPRAZOLE SODIUM 40 MG VIAL IVP SCH (22:07)
[2017-02-20] MEDS: POTASSIUM Cl (KCl) 100 ML IV SCH (23:05)
[2017-02-20] MEDS ORDERED: MAGNESIUM SULF 2 GM/WATER 50 ML IV ONE (23:36)
[2017-02-21] MEDS: POTASSIUM Cl (KCl) 100 ML IV SCH ×8 (00:29→23:15)
[2017-02-21] MEDS: ALBUTEROL IH SCH ×4 (00:42→13:58)
--- NOTE | 2017-02-21 00:57 | GCON ---
[f rep st] CONSULTATION DATE OF CONSULTATION: 02/20/2017 REASON FOR CONSULTATION: New onset of iron deficiency anemia. HISTORY OF PRESENT ILLNESS: Patient is a 61-year-old gentleman followed by Dr. Bustos in [place] for essential hypertension, who was seen at his PCP's office earlier today for 2-month history of progressive shortness of breath and fatigue, and was found to have profound anemia with hematocrit of 22. He was sent to [facility] for admission and further evaluation.I was asked to see the patient in consultation by Dr Handley for the above symptoms and medical findings. The patient states he has had no complaints of change in bowel habits, unexplained weight loss, blood in stool, black tarry stools, dyspepsia, nausea, or vomiting. He has had no prior colonoscopy or upper endoscopy. There is no family history of colon cancer or peptic ulcer or other GI malignancies. MEDICATIONS: Prior to admission included diltiazem 240 mg p.o. daily, Spiriva inhaler 18 mcg daily, albuterol inhaler 1-2 puffs q.4 hours, ibuprofen p.r.n. pain, and ranitidine 150 mg p.o. daily. ALLERGIES: Lisinopril, which causes swelling and meperidine which results in vomiting. PAST MEDICAL HISTORY: Significant for hypertension and reactive airway disease. PAST SURGICAL HISTORY: Significant for remote history of bilateral inguinal hernia repair. No history of colonoscopies or upper endoscopies. FAMILY HISTORY: Negative for GI malignancies. SOCIAL HISTORY: Patient lives alone in [place]. He does not smoke tobacco or consume significant quantities of alcohol. REVIEW OF SYSTEMS: Other than positive for fatigue and shortness of breath, was negative for comprehensive Review of Systems. PHYSICAL EXAMINATION: VITAL SIGNS: On my examination today, temperature 36.8 Celsius, pulse 92 regular, blood pressure 121/81, respiratory rate 16, O2 saturation 98% on 2 L per nasal cannula. GENERAL: Well-developed, well- nourished male in no apparent distress. INTEGUMENT: Clear without ecchymoses. HEENT: Head: Atraumatic, normocephalic. Pupils: Equal, round, reactive to light. EOMs intact. Sclerae are pale. Nares patent. Mucous membranes moist. NECK: Supple. Trachea midline. LYMPHATICS: No cervical adenopathy. PULMONARY: Lungs clear to percussion and auscultation. CARDIOVASCULAR: Regular rhythm, rate. Normal S1, S2 without murmur. Peripheral pulses strong bilaterally. No pedal edema. GASTROINTESTINAL: Abdomen supple. Positive bowel sounds. No liver or spleen tip palpable. No masses or tenderness noted. No fluid wave noted. EXTREMITIES: Without deformity. NEURO: Patient was alert and oriented x3. There were no focal neurologic deficits. LABS: White count 9.9, hemoglobin 7.3, hematocrit 22.5, MCV 76.8, MCHC 32.4, RDW elevated at 16.8. Sodium 127, potassium 2.3, chloride 86, CO2 24, anion gap 17, BUN 16, creatinine 1.3. Iron low at 15.0, TIBC and ferritin pending. Total bilirubin 0.4, AST 96, ALT 69, ALP 105, albumin 2.6, lipase 170. Stool Hemoccult negative. IMPRESSION: 1. Insidious onset of anemia consistent with iron deficiency. Rule out chronic GI blood loss from an occult peptic ulcer versus occult GI malignancy. 2. Hypertension by history. 3. Mild hyponatremia and hypokalemia. 4. Mild elevation of AST suspicious for concurrent alcohol use in excess. 5. Reactive airway disease by history. RECOMMENDATIONS: 1. Clear liquid diet. 2. GoLytely prep. 3. Correct sodium, potassium, and balance. 4. Esophagogastroduodenoscopy and total colonoscopy tomorrow. /[id number]/MODL MTDD
[2017-02-21] MEDS ORDERED: MAGNESIUM SULF 2 GM/WATER 50 ML IV ONE (06:34)
[2017-02-21] MEDS ORDERED: PEG 3350/NA SULF,BICARB,CL/KCL (GAVILYTE-G) 4000 ML BTL PO ONE (08:05)
--- NOTE | 2017-02-21 08:13 | SOAPPROG ---
SOAP Progress Note Assessment/Plan: Assessment: 1. FELIX; inadequate prep of colon so far today. 2. Hypokalemia. Plan: 1. Re-prep colon today, colonoscopy later today or tomorrow am depending on how difficult to re-prep today. 2. Hospitalist to correct low K. Tyrone Navarro MD 02/21/17 08:14 Subjective: CC: FELIX. Interval HPI: Still poassing solid BMs after 4L of [place] po. Objective: Vital Signs Temp Pulse Resp BP Pulse Ox 36.8 C 88 18 140/92 H 97 02/21/17 03:42 02/21/17 05:01 02/21/17 05:01 02/21/17 03:42 02/21/17 03:42 Laboratory Results 02/21/17 03:14 02/21/17 03:14 02/20/17 02/21/17 02/22/17 05:59 05:59 05:59 Intake Total 550 Output Total 500 Balance 50 Physical Exam - Physical Exam General Appearance: alert, no apparent distress Respiratory: lungs clear, normal breath sounds Cardiac/Chest: regular rate, rhythm Abdomen: normal bowel sounds, non-tender, soft Skin: warm/dry Neuro/Psych: alert, normal mood/affect, oriented x 3 ICD10 Worksheet Patient Problems: Problems Problem Status Onset Hypokalemia Acute Severe anemia Acute Chronic obstructive pulmonary disease with acute exacerbation Acute Rib fractures Acute Right lower lobe pneumonia Acute Severe sepsis Acute
[2017-02-21] MEDS: PANTOPRAZOLE SODIUM 40 MG VIAL IVP SCH ×3 (08:29→20:40)
[2017-02-21] MEDS: FAMOTIDINE 20 MG TAB PO SCH ×2 (08:29→10:39)
[2017-02-21] MEDS: TIOTROPIUM INHALER 18 MCG/DOSE 5 DOSE/MDI IH SCH (08:33)
[2017-02-21] MEDS ORDERED: DILTIAZEM XR 240 MG CAP PO SCH (09:00)
--- NOTE | 2017-02-21 09:42 | ASMTCASEMG ---
Living Arrangements What is your living Answers: Alone arrangement? Who do you live with? Type Of Residence What kind of residence do Answers: House you live in? Discharge Plan Comments Coordination Status Comments Notes: Pt is a 61 y/o man admitted w/ anemia and fatigue. CM spoke w/ RICKIE Almonte regarding d/c POC. Anticipates that pt will d/c independent when medically stable. CM available for changes. Date Signed: 02/21/2017 09:41 AM Electronically Signed By:FERNANDO Wooten
[2017-02-21] MEDS ORDERED: FLU VACC QS 2017-18 (3YR+)/PF 0.5 ML SYR (FLUARIX QUAD) IM ONE (09:52)
[2017-02-21] MEDS ORDERED: NS 1,000 ML IV SCH (10:00)
[2017-02-21] MEDS ORDERED: ALBUTEROL IH PRN ×2 (14:25→15:50)
[2017-02-21] MEDS ORDERED: ALBUTEROL 200 PUFFS/18 GM MDI IH PRN (15:54)
--- NOTE | 2017-02-21 15:58 | HOSPPROG ---
Hospitalist Progress Note Assessment/Plan: # Fe defic anemia, symptomatic - transfusion last night - EGD and colonoscopy tomorrow, inadequate prep today # hypoNa - unclear if hypovolemic; somewhat chronic - check Ani, osms; recheck BMP now # hypoK, hypoMg - replete aggressively; check urine K # elevated AST - possible etOH use # DONA -resolved # COPD/chronic resp failure - inhalers Subjective: inadequate prep last night; now with clear stools; Objective: Vital Signs Temp Pulse Resp BP Pulse Ox 36.6 C 95 16 156/98 H 98 02/21/17 11:56 02/21/17 11:56 02/21/17 11:56 02/21/17 11:56 02/21/17 11:56 Laboratory Results 02/21/17 03:14 02/21/17 03:14 02/20/17 02/21/17 02/22/17 05:59 05:59 05:59 Intake Total 550 Output Total 500 100 Balance 50 -100 chart reviewed ecg personally reviewed - Physical Exam Constitutional: no apparent distress, appears nourished Cardiovascular: regular rate and rhythym, no murmur, rub, or gallop Respiratory: no respiratory distress, reduced air movement, expiratory wheeze ( mild, bases), No bronchial breath sounds Gastrointestinal: normoactive bowel sounds, soft, non-tender abdomen, no palpable masses ICD10 Worksheet Patient Problems: Problems Problem Status Onset Rib fractures Acute Right lower lobe pneumonia Acute Severe sepsis Acute Chronic obstructive pulmonary disease with acute exacerbation Acute Severe anemia Acute Hypokalemia Acute
--- NOTE | 2017-02-21 16:18 | PDMN ---
Medical Necessity Medical necessity: Change to IP, as of 02/21/17, per MD, for ongoing eval/ management of iron deficient anemia requiring EGD & colonoscopy, hypoNa, hypoK, hypoMg requiring aggressive repletion; hx COPD, chronic respiratory failure & htn; per progress note 02/21/17
[2017-02-21] MEDS: NS W/ 20 KCl/L 1,000 ML IV SCH (16:49)
[2017-02-22] MEDS: POTASSIUM Cl (KCl) 100 ML IV SCH ×8 (00:15→21:26)
[2017-02-22] MEDS: NS W/ 20 KCl/L 1,000 ML IV SCH (04:41)
[2017-02-22 06:02] LABS: PLATELET COUNT 273 10^3/uL (150-400)
[2017-02-22] MEDS ORDERED: MAGNESIUM SULF 2 GM/WATER 50 ML IV ONE ×3 (06:27→16:09)
[2017-02-22] MEDS: PANTOPRAZOLE SODIUM 40 MG VIAL IVP SCH ×2 (09:07→20:11)
[2017-02-22] MEDS: FAMOTIDINE 20 MG TAB PO SCH (09:07)
[2017-02-22] MEDS ORDERED: POTASSIUM Cl (KCl) 100 ML IV SCH ×3 (09:15→22:50)
[2017-02-22] MEDS: TIOTROPIUM INHALER 18 MCG/DOSE 5 DOSE/MDI IH SCH (10:01)
[2017-02-22] MEDS: SODIUM FERRIC GLUCONAT/SUCROSE 125 MG in NS 100 ML IV SCH (13:00)
--- NOTE | 2017-02-22 15:36 | SOAPPROG ---
SOAP Progress Note Assessment/Plan: Assessment: 1. FELIX. 2. Hypokalemia; unable to perform Colon/EGD due to low K+.. Plan: 1. Hospitalist to correct low K. 2. Clears po today. 3. one bottle of magnesium Citrate at [place]. 4. Colon/EGD in am. Tyrone Navarro MD 02/21/17 08:14 02/22/17 15:33 Subjective: CC: FELIX> Interval HPI: No complaints, clear liquid stool today. Unable to perform endoscopies today due to low K+. Patient's birthday today. Objective: Vital Signs Temp Pulse Resp BP Pulse Ox 36.7 C 99 17 134/86 H 100 02/22/17 11:38 02/22/17 11:38 02/22/17 11:38 02/22/17 11:38 02/22/17 11:38 Laboratory Results 02/22/17 05:34 02/21/17 02/22/17 02/23/17 05:59 05:59 05:59 Intake Total 3765 Balance 3765 Laboratory Tests 02/22/17 02/22/17 05:34 14:58 WBC 5.49 Hgb 8.0 L Hct 24.7 L MCV 78.4 L MCH 25.4 L Plt Count 273 D Sodium 131 L Potassium 2.8 L Physical Exam - Physical Exam General Appearance: WD/WN, alert, no apparent distress Respiratory: lungs clear, normal breath sounds Cardiac/Chest: normal peripheral pulses, regular rate, rhythm Abdomen: normal bowel sounds, non-tender, soft Skin: normal color, warm/dry Neuro/Psych: alert, normal mood/affect, oriented x 3 ICD10 Worksheet Patient Problems: Problems Problem Status Onset Hypokalemia Acute Severe anemia Acute Chronic obstructive pulmonary disease with acute exacerbation Acute Rib fractures Acute Right lower lobe pneumonia Acute Severe sepsis Acute
[2017-02-22] MEDS ORDERED: MAGNESIUM CITRATE 300 ML BOTTLE PO ONE ×2 (15:39→23:00)
[2017-02-22] MEDS ORDERED: POTASSIUM CL 20 MEQ TAB PO ONE (16:10)
--- NOTE | 2017-02-22 16:43 | HOSPPROG ---
Hospitalist Progress Note Assessment/Plan: Assessment: 62-year-old male presents with acutely worsening iron deficient anemia complicated by severe hypokalemia, hypomagnesemia Plan: # Iron defic anemia. Acute, new problem to this provider, further w/u indicated. Symptomatic. S/p transfusion, hgb stable today, giving dose of IV iron, will likely require PO dosing at discharge - outside records reviewed (05/18/16 MCV normal), suggesting acute decline since that time - d/w Dr. Navarro, he recommends EGD/Colonoscopy, but cannot be completed until K/Mg within safe range - procedures aborted today, give mag citrate tonight, attempt in AM # Hyponatremia. Chronic, Coreen 110 indicating SIADH, hold on further IVF, monitor # HypoKalemia, hypoMagnesemia. Severe, unclear if 2/2 GI losses w/ prep, s/p 80mEq last PM and today w/o significant effect - give additional 80mEq now + 2g Mg IV - repeat K/Mg at 10 p.m. and replete as needed for goal 4/2 # Transaminitis. Possible etOH use # DONA. 2/2 hypovolemia, resolved # COPD and chronic hypoxic resp failure. Cont o2 and inhalers Diet. Clears, NPO after MN PPx. High risk, SCDS, hold pharm given anemia Code. Full Dispo. ADD 02/23, pending results of above. Subjective: patient frustrated by delays, no abd pain Objective: Vital Signs Temp Pulse Resp BP Pulse Ox 36.7 C 99 17 134/86 H 100 02/22/17 11:38 02/22/17 11:38 02/22/17 11:38 02/22/17 11:38 02/22/17 11:38 Laboratory Results 02/22/17 05:34 02/22/17 14:58 02/21/17 02/22/17 02/23/17 05:59 05:59 05:59 Intake Total 3765 Balance 3765 - Pending Discharge Pending Discharge Within 24 Hours: Yes Pending Discharge Date: 02/23/17 Pending Discharge Time: 11:00 - Physical Exam Constitutional: no apparent distress, appears nourished, not in pain, No uncomfortable Cardiovascular: regular rate and rhythym, no murmur, rub, or gallop, No edema Respiratory: no respiratory distress, no rales or rhonchi, clear to auscultation Gastrointestinal: normoactive bowel sounds, soft, non-tender abdomen, no palpable masses, No distension Neurologic: AAOx3 Psychiatric: interacting appropriately, not anxious, not encephalopathic, thought process linear ICD10 Worksheet Patient Problems: Problems Problem Status Onset Rib fractures Acute Right lower lobe pneumonia Acute Severe sepsis Acute Chronic obstructive pulmonary disease with acute exacerbation Acute Severe anemia Acute Hypokalemia Acute
[2017-02-22] MEDS ORDERED: POTASSIUM Cl (KCl) 10 MEQ in NS 100 ML IV SCH (17:15)
[2017-02-22] MEDS ORDERED: MAGNESIUM SULF 1 GM/DEXTROSE 100 ML IV ONE (22:51)
[2017-02-23] MEDS: POTASSIUM Cl (KCl) 100 ML IV SCH ×5 (00:49→11:28)
[2017-02-23] MEDS ORDERED: MAGNESIUM SULF 1 GM/DEXTROSE 100 ML IV ONE (05:56)
[2017-02-23 08:11] VITALS: PULSE 104
[2017-02-23] MEDS ORDERED: POTASSIUM CL 20 MEQ TAB PO ONE ×2 (09:07→11:30)
--- NOTE | 2017-02-23 09:08 | PDANEPAE ---
ANE History of Present Illness 62 yo M here with iron deficient anemia, concern for GI bleed here for EGD/colo ANE Past Medical History - Cardiovascular History Hx Hypertension: Yes Hx Coronary Artery / Peripheral Vascular Disease: No - Pulmonary History Hx COPD: Yes Hx Oxygen in Use at Home: Yes O2 in Use at Home (L/minute): 3 Hx Sleep Apnea: No Sleep Apnea Screening Result - Last Documented: Positive - Endocrine History Hx Diabetes: No - Chronic Pain History Chronic Pain: No ANE Review of Systems Review of Systems: - Exercise capacity Exercise capacity: >=4 METS ANE Patient History - Allergies Allergies/Adverse Reactions: lisinopril Allergy (Severe, Verified 02/20/17 15:48) Swelling/neck,face,throat meperidine HCl [From Demerol] Allergy (Unknown, Verified 02/20/17 15:48) Vomiting - Home Medications Home Medications: Diltiazem HCl [Cartia XT 240mg] 240 mg PO DAILY 05/15/16 [Last Taken 02/20/17] Tiotropium Inhaler [Spiriva Handihaler] 18 mcg IH DAILY 05/15/16 [Last Taken ] Ibuprofen [Motrin (*)] 800 mg PO Q7D PRN 02/20/17 [Last Taken Unknown] Ranitidine HCl 150 mg PO DAILY 02/20/17 [Last Taken 02/20/17] Albuterol [Ventolin Hfa Inhaler] 1 - 2 puffs IH Q4 PRN MDD s 02/21/17 [Last Taken Unknown] - NPO status NPO Status: no food or drink >8 hours NPO Since - Liquids (Date): 02/23/17 NPO Since - Liquids (Time): 00:01 NPO Since - Solids (Date): 02/22/17 NPO Since - Solids (Time): 18:00 - Anes Hx Anes Hx: no prior problems - Smoking Hx Smoking Status: Former smoker - Alcohol Use Alcohol Use: Occasionally - Family Anes Hx Family Anes Hx: none ANE Labs/Vital Signs - Labs Result Diagrams: 02/22/17 05:34 02/23/17 04:46 - Vital Signs Blood Pressure: 146/98 Heart Rate: 104 Respiratory Rate: 18 O2 Sat (%): 97 Height: 165.1 cm Weight: 55.3 kg ANE Physical Exam - Airway Neck exam: FROM Mouth exam: dentures, shell - Pulmonary Pulmonary: no respiratory distress - Cardiovascular Cardiovascular: regular rate and rhythym - ASA Status ASA Status: III ANE Anesthesia Plan Anesthesia Plan: GA with mask
[2017-02-23] MEDS ORDERED: PROPOFOL/EMULSION 500 MG/50 ML BOTTLE IV ONE (09:12)
--- NOTE | 2017-02-23 10:03 | GIREPORT ---
Formerly [facility] Surgical Services - Endoscopy Department Patient Name: Keshawn Post Procedure Date: 02/23/2017 9:34 AM Patient Type: Inpatient Attending MD/ ER Physician: Tyrone Navarro MD Procedure: Colonoscopy Indications: Melena, Acute post hemorrhagic anemia Providers: Tyrone Navarro MD Medicines: General Anesthesia Complications: No immediate complications. Description of Procedure: After obtaining informed consent, the scope was passed under direct vis ion. Throughout the procedure, the patient's blood pressure, pulse, and oxyg en saturations were monitored continuously. The Colonoscope was introduced through the anus and advanced to the terminal ileum. The colonoscopy wa s performed without difficulty. The patient tolerated the procedure well. The quality of the bowel preparation was adequate. Findings: The terminal ileum appeared normal. The descending colon, transverse colon, ascending colon, cecum, appendi ceal orifice and ileocecal valve appeared normal. Scattered diverticula were found in the sigmoid colon. The rectum appeared normal. The perianal and digital rectal examinations were normal. Estimated Blood Loss: Estimated blood loss: none. Post Op Diagnosis: - The examined portion of the ileum was normal. - The descending colon, transverse colon, ascending colon, cecum, appendiceal orifice and ileocecal valve are normal. - Diverticulosis in the sigmoid colon. - The rectum is normal. - No specimens collected. Recommendation: - Return patient to hospital cates for possible discharge same day. - Resume regular diet today. - Await pathology results. - Use Protonix (pantoprazole) 40 mg PO BID for 2 months. - Perform an upper GI endoscopy in 2 months. - Repeat colonoscopy in 10 years for screening purposes. Attending Participation: I personally performed the entire procedure. Tyrone Navarro MD Tyrone Navarro MD 02/23/2017 10:03:15 AM This report has been signed electronicallyTyrone Navarro MD Number of Addenda: 0 Note Initiated On: 02/23/2017 9:34 AM Total Procedure Duration Time 0 hours 23 minutes 34 seconds [email or web address]
[2017-02-23] MEDS ORDERED: NALOXONE HCL 0.4 MG/ML INJ IVP PRN (10:17)
[2017-02-23] MEDS ORDERED: ALBUTEROL 3 ML DEYVIAL IH PRN (10:17)
[2017-02-23] MEDS: TIOTROPIUM INHALER 18 MCG/DOSE 5 DOSE/MDI IH SCH (10:19)
[2017-02-23 10:51] VITALS: O2SAT 91
[2017-02-23 10:59] VITALS: BP 118/90; RESP 16; TEMP 98.6
[2017-02-23] MEDS ORDERED: PANTOPRAZOLE SODIUM 40 MG TAB PO SCH ×2 (11:14→21:00)
[2017-02-23] MEDS: SODIUM FERRIC GLUCONAT/SUCROSE 125 MG in NS 100 ML IV SCH (11:20)
[2017-02-23] MEDS: FAMOTIDINE 20 MG TAB PO SCH (11:28)
[2017-02-23] MEDS: PANTOPRAZOLE SODIUM 40 MG VIAL IVP SCH (11:29)
--- NOTE | 2017-02-23 13:42 | POSTANESTH ---
Post Anesthetic Evaluation Cardiovascular Status: Normal, Stable, Similar to Pre-Op Cond Respiratory Status: Normal, Stable, Similar to Pre-op Cond. Level of Consciousness/Mental Status: Can Participate in Eval, Alert and Oriented Pain Control: Adequate, Prn Tx Ordered Nausea/Vomiting Control: Adequate, Prn Tx Ordered Complications Possibly Related to Anesthesia: None Noted
--- NOTE | 2017-02-23 17:44 | PDDCSUM ---
Discharge Summary Discharge Summary: DISCHARGE SUMMARY FOLLOW-UP ITEMS: Repeat CBC and basic metabolic profile in 1 week DATE OF ADMISSION: 02/20/2017 DATE OF DISCHARGE: 02/23/2017 DISCHARGE DIAGNOSES: 1. Acute iron deficient anemia 2. Acute esophagitis 3. Chronic hyponatremia 4. Severe hypokalemia and hypomagnesemia 5. Transaminitis 6. Acute kidney injury 7. Chronic hypoxic respiratory failure CONSULTATIONS: Gastroenterology PROCEDURES / IMAGING: Upper endoscopy demonstrating esophagitis, no active bleeding, colonoscopy normal CHIEF COMPLAINT: Acute fatigue SUBJECTIVE: Patient is feeling well at time of discharge, he is ambulating safely PHYSICAL EXAM ON DISCHARGE: Systolic blood pressure is 110, heart rate 100, afebrile overnight, satting well on 2 L nasal cannula, bowel sounds are present, abdomen is soft nontender nondistended, pain level 0/10, alert awake oriented x3 LABS ON DISCHARGE: Creatinine 0.7, potassium 3.4, magnesium 1.7, serum sodium 128, hemoglobin 7.9, MCV 78 HOSPITAL COURSE BY PROBLEM: Patient presented with acute fatigue in the setting of iron deficient anemia secondary to presumed bleeding esophagitis with resultant hemoglobin level 7.3, MCV 76. Experienced acute kidney injury with a creatinine of 1.3, receiving empiric IV fluids. Patient was evaluated for source of bleeding, and at 1st experienced an inadequate prep, delaying his upper endoscopy and colonoscopy. The patient then had a successful prep, but his course was complicated by severe hypokalemia and hypomagnesemia, presumably secondary to GI losses with the prep. He received aggressive IV potassium and magnesium supplementation. His procedures had to be further delayed, and they were performed on 02/23, demonstrating no bleeding lesions in the colon, esophageal itis on the upper endoscopy. Consequently, the patient will be discharged on pantoprazole 40 mg twice daily. He will have repeat CBC drawn as an outpatient. He received IV iron during this hospitalization, and may require IV iron in the outpatient setting in order to improve his overall hemoglobin level. He should also have his electrolytes recheck, to ensure he does not require further supplementation. His mild transaminitis is felt to be secondary to alcohol use, and I counseled the patient to avoid spicy, acidic foods, and avoid alcohol, cigarrettes, and sodas. He remained stable on his outpatient supplemental oxygen requirement. DISCHARGE MEDICATIONS: Please see official discharge medication reconciliation sheet in chart , continue home medications with the discontinuation ibuprofen, initiation of pantoprazole twice daily, discontinuation of ranitidine. DISCHARGE INSTRUCTIONS: Please have outpatient labs drawn 1 week, follow up with Dr. Tyrone Navarro thereafter. TIME SPENT: Greater than 30 minutes were spent on direct patient care, as well as discharge planning and preparation.
--- NOTE | 2017-02-24 10:21 | ASDISCHSUM ---
Discharge Information Plan Status:Home with No Needs Medically Cleared to Leave:02/23/2017 Discharge Date:02/23/2017 01:30 PM CM D/C Disposition:Home, Routine, Self-Care ADT D/C Disposition:Home, Routine, Self-Care Projected Discharge Date:02/23/2017 01:30 PM Transportation at D/C:Family Discharge Delay Reason: Follow-Up Date:02/23/2017 01:30 PM Discharge Slot: Final Diagnosis:Acute iron deficient anemia, acute esophagitis, chronic hyponatremia, severe hypokal emia, hypomagnesemia, transaminitis, acute kidney injury, chronic hypoxic resp failure Placement Information Patient Contact Information Contact Name:CAPO Relationship: Address: Work Phone: City: [facility] Phone: [facility]/[employer] Code: Email: Financial Information Financial Class: Primary Plan Desc:[employer] [place] Primary Plan Number:[id number] Secondary Plan Desc: Secondary Plan Number: Assessment Information [facility] Initial CM Assessment Living Arrangements What is your living Answers: Alone arrangement? Who do you live with? Type Of Residence What kind of residence do Answers: House you live in? Discharge Plan Comments Coordination Status Comments Notes: Pt is a 61 y/o man admitted w/ anemia and fatigue. CM spoke w/ RICKIE Almonte regarding d/c POC. Anticipates that pt will d/c independent when medically stable. CM available for changes. Date Signed: 02/21/2017 09:41 AM Electronically Signed By:FERNANDO Wooten Intervention Information
--- NOTE | 2017-02-24 10:21 | ASDISCHSUM ---
Discharge Information Plan Status:Home with No Needs Medically Cleared to Leave:02/23/2017 Discharge Date:02/23/2017 01:30 PM CM D/C Disposition:Home, Routine, Self-Care ADT D/C Disposition:Home, Routine, Self-Care Projected Discharge Date:02/23/2017 01:30 PM Transportation at D/C:Family Discharge Delay Reason: Follow-Up Date:02/23/2017 01:30 PM Discharge Slot: Final Diagnosis:Acute iron deficient anemia, acute esophagitis, chronic hyponatremia, severe hypokal emia, hypomagnesemia, transaminitis, acute kidney injury, chronic hypoxic resp failure Placement Information Patient Contact Information Contact Name:CAPO Relationship: Address: Work Phone: City: [facility] Phone: [facility]/[employer] Code: Email: Financial Information Financial Class: Primary Plan Desc:[employer] [place] Primary Plan Number:[id number] Secondary Plan Desc: Secondary Plan Number: Assessment Information [facility] Initial CM Assessment Living Arrangements What is your living Answers: Alone arrangement? Who do you live with? Type Of Residence What kind of residence do Answers: House you live in? Discharge Plan Comments Coordination Status Comments Notes: Pt is a 61 y/o man admitted w/ anemia and fatigue. CM spoke w/ RICKIE Almonte regarding d/c POC. Anticipates that pt will d/c independent when medically stable. CM available for changes. Date Signed: 02/21/2017 09:41 AM Electronically Signed By:FERNANDO Wooten Intervention Information
--- NOTE | 2017-02-24 10:21 | ASDISCHSUM ---
Discharge Information Plan Status:Home with No Needs Medically Cleared to Leave:02/23/2017 Discharge Date:02/23/2017 01:30 PM CM D/C Disposition:Home, Routine, Self-Care ADT D/C Disposition:Home, Routine, Self-Care Projected Discharge Date:02/23/2017 01:30 PM Transportation at D/C:Family Discharge Delay Reason: Follow-Up Date:02/23/2017 01:30 PM Discharge Slot: Final Diagnosis:Acute iron deficient anemia, acute esophagitis, chronic hyponatremia, severe hypokal emia, hypomagnesemia, transaminitis, acute kidney injury, chronic hypoxic resp failure Placement Information Patient Contact Information Contact Name:CAPO Relationship: Address: Work Phone: City: [facility] Phone: [facility]/[employer] Code: Email: Financial Information Financial Class: Primary Plan Desc:[employer] IP Primary Plan Number:[id number] Secondary Plan Desc: Secondary Plan Number: Assessment Information [facility] Initial CM Assessment Living Arrangements What is your living Answers: Alone arrangement? Who do you live with? Type Of Residence What kind of residence do Answers: House you live in? Discharge Plan Comments Coordination Status Comments Notes: Pt is a 61 y/o man admitted w/ anemia and fatigue. CM spoke w/ RICKIE Almonte regarding d/c POC. Anticipates that pt will d/c independent when medically stable. CM available for changes. Date Signed: 02/21/2017 09:41 AM Electronically Signed By:FERNANDO Wooten Intervention Information
== END 2017-02-23 13:30 | disposition home or self-care (01) | DRG 811 ==
LOC: F2W 15:48 → OBSVTOIN 02-21 15:49 → F3E 02-21 17:06
PROVIDERS: ADMIT Internal Medicine; ATTEND Internal Medicine
PROC: 30233N1 Transfusion of Nonautologous Red Blood Cells into Peripheral Vein, Percutaneous Approach (ICD-10-PCS; 2017-02-20)
PROC: 0DJD8ZZ Inspection of Lower Intestinal Tract, Via Natural or Artificial Opening Endoscopic (ICD-10-PCS; principal; 2017-02-23 08:45)
DX: D50.9 Iron deficiency anemia, unspecified (principal); K22.11 Ulcer of esophagus with bleeding; E87.1 Hypo-osmolality and hyponatremia; N17.9 Acute kidney failure, unspecified; J96.11 Chronic respiratory failure with hypoxia; E83.42 Hypomagnesemia; R74.0 Nonspecific elevation of levels of transaminase and lactic acid dehydrogenase [LDH]; Z23 Encounter for immunization; I10 Essential (primary) hypertension; J44.9 Chronic obstructive pulmonary disease, unspecified; K57.30 Diverticulosis of large intestine without perforation or abscess without bleeding
CPT/HCPCS: G0008; G0378; J2704; J2916; J3475; P9016

== ENCOUNTER 2017-05-31 09:50 | Inpatient (IN) | payer MEDICAID ==
[2017-05-31 10:27] LABS: PLATELET COUNT 257 10^3/uL (150-400)
--- NOTE | 2017-05-31 10:28 | CPEKG ---
Heart Rate: 105 RR Interval: 571 P-R Interval: 164 QRSD Interval: 88 QT Interval: 328 QTC Interval: 434 P Dille: 78 QRS Dille: -42 T Wave Dille: 80 EKG Severity - ABNORMAL ECG - EKG Impression: SINUS TACHYCARDIA EKG Impression: LEFT AXIS DEVIATION EKG Impression: LOW VOLTAGE IN FRONTAL LEADS Electronically Signed By: Adia Kimball 31-May-2017 15:07:39
--- NOTE | 2017-05-31 10:34 | EDPHY ---
H & P Stated Complaint: Sent by PCP for low potassium. Time Seen by Provider: 05/31/17 10:12 HPI/ROS: CHIEF COMPLAINT: Hypokalemia HISTORY OF PRESENT ILLNESS: The patient is a 62 y/o male arriving with his for hypokalemia. Potassium 2.1 on labs drawn at his PCP's office yesterday. His medical history includes COPD, chronic respiratory failure on 2-3L O2, chronic hyponatremia, and esophagitis. He was admitted 02/20/17 for anemia and severe hypokalemia and hypomagnesium. Prescribed potassium, magnesium, and Protonix on discharge. He has been taking Protonix daily and had an upper endoscopy [address] Mcmillan for follow up that showed healing esophageal ulcers. Over the last few weeks his has noticed gradually increasing weakness and what she describes as lack of equilibrium when walking. However, the patient denies any complaints; no weakness, fatigue, paresthesias, or increased difficulty with daily activities. He stopped taking his potassium and magnesium pills a few days ago for unclear reasons. He denies vomiting, diarrhea, loss of appetite , abdominal pain, or any other complaints. REVIEW OF SYSTEMS: Constitutional: No fever, no recent illness Eyes: No visual changes ENT: No sore throat Respiratory: No cough, no shortness of breath Cardiac: No chest pain Gastrointestinal: No nausea, no vomiting, no abdominal pain Genitourinary: no dysuria Musculoskeletal: No leg pain or swelling Skin: No rash Neurological: No headache Psychiatric: No hallucinations - Personal History Current Tetanus Diphtheria and Acellular Pertussis (TDAP): No Tetanus Vaccine Date: < 10 YEARS - Medical/Surgical History PMH: PMH includes 1. COPD 2. Chronic hypoxemic respiratory failure on 2-3L 3. Chronic hyponatremia 4. Hypokalemia and hypomagnesemia 5. Hernia repair 6. Gastric ulcers? 7. Bleeding esophagitis causing anemia 02/20/17 8. Transaminitis Reviewed prior medial records including admission 02/20/17 for fatigue, anemia, and severe hypokalemia and hypomagnesemia. Hx Asthma: No Hx Chronic Respiratory Disease: No Hx Diabetes: No Hx Cardiac Disease: No Hx Renal Disease: No Hx Cirrhosis: No Hx Alcoholism: No Hx HIV/AIDS: No Hx Splenectomy or Spleen Trauma: No Other PMH: Hypertension, hernia surgery, cataract surgery. Anemia - Social History Smoking Status: Former smoker Additional Social History: Drinks alcohol - couple beers/day. Lives in [place]. Former heavy smoker, quit 2016. at bedside. - Physical Exam Exam: General Appearance: Alert, pale, speaks softly Eyes: Pupils equal and round, no conjunctival pallor or injection ENT, Mouth: Mucous membranes moist Neck: Normal inspection Respiratory: Lungs are clear to auscultation Cardiovascular: regular tachycardia Gastrointestinal: Abdomen is soft and non-tender Neurological: A&O, nonfocal, gait not assessed Skin: Warm and dry, no rash Extremities: Nontender, no pedal edema Psychiatric: Flat affect Constitutional: Initial Vital Signs Temperature (C) 36.7 C 05/31/17 09:50 Heart Rate 107 H 05/31/17 09:50 Respiratory Rate 16 05/31/17 09:50 Blood Pressure 108/81 H 05/31/17 09:50 O2 Sat (%) 99 05/31/17 09:50 O2 Delivery Mode Nasal Cannula O2 (L/minute) 2 Allergies/Adverse Reactions: lisinopril Allergy (Severe, Verified 02/20/17 15:48) Swelling/neck,face,throat meperidine HCl [From Demerol] Allergy (Unknown, Verified 02/20/17 15:48) Vomiting Home Medications: Medication Instructions Recorded Diltiazem HCl [Cartia XT 240mg] 240 mg PO DAILY 05/15/16 Tiotropium Inhaler [Spiriva 18 mcg IH DAILY 05/15/16 Handihaler] Ferrous Sulfate [Ferrous Sulf 325 325 mg PO BID 05/31/17 MG (*)] Fluticasone/Salmeter 250/50Mcg 1 puffs IH BID 05/31/17 [Advair 250/50 (*)] Herbals/Supplements -Info Only 1 ea PO DAILY 05/31/17 Indomethacin [Indocin 25 mg (*)] 50 mg PO TID PRN 05/31/17 Pantoprazole Sodium [Protonix 40mg 40 mg PO DAILY 05/31/17 (*)] Potassium Cl [Klor-Con 20 meq (*)] 20 meq PO BID 05/31/17 Ranitidine HCl [Zantac] 150 mg PO BID 05/31/17 Vitamin B Complex [Super B-50 1 each PO DAILY 05/31/17 Complex] Medical Decision Making ED Course/Re-evaluation: This is a 62 y/o male with history of chronic respiratory failure, hypokalemia, hypomagnesemia, hyponatremia, and anemia who presents for evaluation of an outpatient lab showing potassium of 2.1 yesterday. He stopped his potassium and magnesium medications a few days ago for unclear reasons. He is asymptomatic upon assessment. He is pale and mildly tachycardic, exam otherwise unremarkable. Plan for IV, labs, EKG. The 12 lead EKG was interpreted by myself. Sinus tachycardia rate 105, left axis deviation, low voltage frontal leads. See hard copy and/or "tracemaster" electronic copy for interpretation. No concerning EKG changes of hypokalemia. Potassium is 2.2, magnesium 1.0. Patient will require admission for repletion. 1gm IV Magnesium and 10meq IV Potassium given. Hct stable, no evidence of recurrent GI bleed or severe anemia. Consulted with hospitalist service. Dr. Handley accepts admission. Pt stable throughout his ED stay. Differential Diagnosis: DDx for weakness includes though not limited to GI hemorrhage, severe anemia, dysrhythmia, infectious etiology - Data Points Laboratory Results: Laboratory Results 05/31/17 10:16 05/31/17 10:16 Medications Given: Beer (Beer) 1 each PO DAILY AT 6PM OFELIA Stop: 11/27/17 17:59 Last Admin: 06/01/17 18:04 Dose: Not Given Diltiazem HCl (Dilacor Xr) 240 mg PO DAILY OFELIA Stop: 11/27/17 17:29 Last Admin: 06/02/17 09:07 Dose: 240 mg Enoxaparin Sodium (Lovenox) 40 mg SC DAILY OFELIA Stop: 11/28/17 08:59 Last Admin: 06/02/17 09:10 Dose: 40 mg Ferrous Sulfate (Ferrous Sulfate) 325 mg PO BID OFELIA Stop: 11/27/17 20:59 Last Admin: 06/02/17 09:07 Dose: 325 mg Pantoprazole Sodium (Protonix) 40 mg PO DAILY OFELIA Stop: 11/28/17 08:59 Last Admin: 06/02/17 09:07 Dose: 40 mg Tiotropium Dillon (Spiriva Handihaler) 18 mcg IH DAILY OFELIA Stop: 11/28/17 08:59 Last Admin: 06/02/17 09:16 Dose: 1 inh Vitamin B Complex (Vitamin B Complex) 1 ea PO DAILY OFELIA Stop: 11/28/17 08:59 Last Admin: 06/02/17 09:07 Dose: 1 ea Discontinued Medications Diltiazem HCl (Dilacor Xr) 240 mg PO DAILY OFELIA Stop: 11/27/17 17:06 Last Admin: 05/31/17 17:58 Dose: Not Given Famotidine (Pepcid) 20 mg PO BID OFELIA Stop: 11/27/17 20:59 Last Admin: 06/01/17 09:13 Dose: 20 mg Potassium Chloride (Potassium Cl 20 Meq (Premix)) 100 mls @ 50 mls/hr IV EDNOW ONE Stop: 05/31/17 12:55 Last Admin: 05/31/17 12:23 Dose: Not Given Magnesium Sulfate/Dextrose (Magnesium Sulf 1 Gm (Premix)) 100 mls @ 100 mls/hr IV EDNOW ONE Stop: 05/31/17 11:56 Last Admin: 05/31/17 11:06 Dose: 100 mls Potassium Chloride 10 meq/ (Dextrose) 100 mls @ 100 mls/hr IV Q1 OFELIA Stop: 05/31/17 13:59 Last Admin: 05/31/17 12:41 Dose: 100 mls Magnesium Sulfate (Magnesium Sulf 2 Gm (Premix)) 50 mls @ 50 mls/hr IV ONCE ONE Stop: 05/31/17 13:20 Last Admin: 05/31/17 12:44 Dose: 50 mls Magnesium Sulfate/Dextrose (Magnesium Sulf 1 Gm (Premix)) 100 mls @ 100 mls/hr IV ONCE ONE Stop: 06/01/17 09:36 Last Admin: 06/01/17 09:12 Dose: 100 mls Magnesium Sulfate/Dextrose (Magnesium Sulf 1 Gm (Premix)) 100 mls @ 100 mls/hr IV ONCE ONE Stop: 06/01/17 18:59 Last Admin: 06/01/17 18:03 Dose: 100 mls Magnesium Sulfate (Magnesium Sulf 2 Gm (Premix)) 50 mls @ 50 mls/hr IV ONCE ONE Stop: 06/02/17 09:04 Last Admin: 06/02/17 09:07 Dose: 50 mls Indomethacin (Indocin) 50 mg PO TID OFELIA Stop: 08/07/18 15:59 Last Admin: 05/31/17 16:07 Dose: 50 mg Potassium Chloride (Klor-Con) 40 meq PO EDNOW ONE Stop: 05/31/17 10:57 Last Admin: 05/31/17 11:06 Dose: 40 meq Potassium Chloride (Klor-Con) 10 - 40 meq PO ONCE ONE PRN Reason: Protocol Stop: 05/31/17 19:12 Last Admin: 05/31/17 19:53 Dose: 40 meq Potassium Chloride (Klor-Con) 10 - 40 meq PO ONCE ONE PRN Reason: Protocol Stop: 06/01/17 08:38 Last Admin: 06/01/17 09:11 Dose: 40 meq Potassium Chloride (Klor-Con) 20 meq PO ONCE ONE Stop: 06/01/17 17:46 Last Admin: 06/01/17 18:03 Dose: 20 meq Potassium Chloride (Klor-Con) 10 - 40 meq PO ONCE ONE PRN Reason: Protocol Stop: 06/02/17 08:06 Last Admin: 06/02/17 09:07 Dose: 30 meq Fluticasone/Salmeterol (Advair) 1 puffs IH BID OFELIA Stop: 11/27/17 20:59 Last Admin: 06/01/17 09:30 Dose: 1 puffs Departure - Departure Disposition: [facility] Inpatient Acute Clinical Impression: Hypokalemia, Hyponatremia Condition: Fair Report Scribed for: Adia Kimball Report Scribed by: Namita Pearson Date of Report: 05/31/17 Time of Report: 11:11 Physician Review and Approval Statement: 05/31/17 11:11 Portions of this note were transcribed by a infertility medical assistant. I personally performed a history, physical exam, medical decision making, and confirmed accuracy of information the transcribed note.
[2017-05-31] MEDS ORDERED: POTASSIUM CL 20 MEQ TAB PO ONE (10:56)
[2017-05-31] MEDS ORDERED: POTASSIUM Cl (KCl) 100 ML IV ONE (10:56)
[2017-05-31] MEDS ORDERED: MAGNESIUM SULF 1 GM/DEXTROSE 100 ML IV ONE (10:57)
[2017-05-31] MEDS: POTASSIUM Cl (KCl) 10 MEQ in D5W 100 ML IV SCH ×2 (11:31→12:41)
[2017-05-31] MEDS ORDERED: ACETAMINOPHEN 325 MG TAB PO PRN (12:19)
[2017-05-31] MEDS ORDERED: ONDANSETRON DISINTEGRATING 4 MG TAB PO PRN (12:19)
[2017-05-31] MEDS ORDERED: ONDANSETRON 4 MG/2 ML VIAL IVP PRN (12:19)
[2017-05-31] MEDS ORDERED: MAGNESIUM SULF 2 GM/WATER 50 ML IV ONE (12:21)
[2017-05-31] MEDS ORDERED: PROTOCOL POTASSIUM 1 DOSE MISC PRN (12:23)
[2017-05-31] MEDS ORDERED: PROTOCOL MAGNESIUM 1 DOSE IV PRN (12:23)
[2017-05-31] MEDS ORDERED: INDOMETHACIN 25 MG CAP PO SCH (16:00)
[2017-05-31] MEDS ORDERED: INDOMETHACIN 25 MG CAP PO PRN (16:30)
[2017-05-31] MEDS ORDERED: DILTIAZEM XR 240 MG CAP PO SCH (17:07)
--- NOTE | 2017-05-31 17:08 | GHP ---
[f rep st] HISTORY AND PHYSICAL DATE OF ADMISSION: 05/31/2017 CHIEF COMPLAINT: Symptomatic hypokalemia, hypomagnesium. HISTORY OF PRESENT ILLNESS: A 62-year-old male, history of COPD, chronic hypoxic respiratory failure on 2 L, chronic hyponatremia, who arrived with his after PCP found his potassium to be 2.1 drawn yesterday. He was admitted 02/20/2017 for anemia and severe hypokalemia/hypomagnesium, and prescribed potassium, magnesium, and Protonix on discharge. Of note, he is not the best historian, but said he had an upper endoscopy [address] Mcmillan that showed healing ulcers. Over the past couple weeks, his noticed increasing weakness, stating that he was wobbly with walking. When I ask him, he denies feeling weak. However, he said his legs did give out on him a couple days ago, and he fell to the side. There was no prodromal symptoms including chest pain, shortness of breath, nausea or vomiting. He said his legs just gave out. He stopped taking his potassium and magnesium a couple days ago. He denies any nausea, vomiting, or diarrhea. He has been eating and drinking okay. Denies any facial numbness or tingling. REVIEW OF SYSTEMS: I completed a 10-point review of systems, negative except as noted in HPI. PAST MEDICAL HISTORY: 1. Chronic hypoxemic respiratory failure, on 2-3 L. 2. Hyponatremia. 3. Hypokalemia/hypomagnesium. 4. Nicotine dependence, but quit last year. 5. Hypertension. 6. Anemia. PAST SURGICAL HISTORY: 1. Hernia repair. 2. Chest tube for a punctured lung. SOCIAL HISTORY: Lives in [place]. Drinks 2 beers a day. Quit tobacco on April 29, 2016. Smoked a half a pack to a pack for 45 years. Denies illicits. FAMILY HISTORY: Dad of a CVA. Mother of natural causes. ALLERGIES: Lisinopril, Demerol. HOME MEDICATIONS: Vitamin B complex, Protonix 40 mg daily, supplement, ranitidine 150 mg twice daily, Klor-Con 20 mEq twice daily, which he has not been taking; Advair 1 puff twice daily, iron sulfate 325 twice daily, Indocin 50 mg p.o. three times daily p.r.n., Spiriva daily, diltiazem 240 mg daily. PHYSICAL EXAMINATION: VITAL SIGNS: Temperature 36.6, blood pressure 147/102, heart rate is 105, respirations 18; 99 on 3 L. GENERAL: Cachectic with muscle wasting. No acute distress. HEENT: PERRLA. EOMI. Oropharynx clear. Negative sign. CV: Tachy, but regular. No murmurs, gallops, rubs. LUNGS: Clear, but diminished throughout with a few expiratory wheezes. ABDOMEN: Soft, nontender, nondistended. Positive bowel sounds. : No Collier. MUSCULOSKELETAL: 5/5 upper lower extremity strength. NEURO: 2 through 12 intact. PSYCH: Alert and oriented x3. Flat affect. LABS: WBC is 6, hemoglobin 12.5, hematocrit 35, platelets 257, sodium 130 which is his baseline, potassium is 2.2, chloride is 94, creatinine 1.3 ( baseline is 0.6 to 0.7), magnesium 1, calcium 8.7. LFTs within normal. EKG is personally reviewed by me, sinus tachycardia, low voltage, Q-waves in lead 3, LVH. ASSESSMENT AND PLAN: 1. Severe hypokalemia, hypomagnesium. The patient has stopped his medications. Suspect this is due to poor nutrition, as he does appear malnourished on exam. However, though his albumin is normal. Query if chronic alcohol use is contributing. He will be aggressively repleted here on electrolyte protocol, as well as telemetry to monitor for any arrhythmias. We will check a urine potassium, creatinine ratio. 2. Weakness. This is attributed to severe electrolyte derangements. Again, aggressive repletion, PT/OT evaluation. 3. Chronic hyponatremia. Sodium is 130 today, which is at his baseline. 4. Alcohol dependence, drinking at least 2 beers a day. No evidence of withdrawal here, but would monitor closely. Rx for beer daily 5. Chronic hypoxemic respiratory failure. Stable on his 3 L, which is baseline. 6. Chronic obstructive pulmonary disease. No evidence of exacerbation. We will continue his home inhalers. 7. Iron deficiency anemia. Continue iron sulfate. Per patient, had ulcers that were improving with recent EGD. I could not obtain these records at this point. We will continue his Protonix and iron. 8. Moderate protein caloric malnutrition: cachexic on exam, pre-alb pending 9. Tachycardia: dehydration likely. Has been off Dilt. Restart this. 10. Accelerated HTN: restart BP meds DIET: Regular. DVT PROPHYLAXIS: Lovenox. DISPOSITION: The patient warrants observation admission given severe electrolyte derangement, placing him at risk for arrhythmia. Continue IV repletion and telemetry. /[id number]/MODL MTDD
[2017-05-31] MEDS: DILTIAZEM XR 240 MG CAP PO SCH (18:10)
[2017-05-31] MEDS: BEER 1 EACH EA PO SCH (18:11)
[2017-05-31] MEDS ORDERED: POTASSIUM CL 10 MEQ TAB PO ONE (19:11)
[2017-05-31] MEDS: FAMOTIDINE 20 MG TAB PO SCH (19:53)
[2017-05-31] MEDS: FERROUS SULFATE 325 MG TAB PO SCH (19:53)
[2017-05-31] MEDS: FLUTICASONE/SALMETER 250/50MCG DISKUS IH SCH (20:03)
[2017-05-31] MEDS ORDERED: NON-FORMULARY NEW DRUG (Ranitidine Hcl [Zantac] 150 MG) PO SCH (21:00)
[2017-06-01] MEDS ORDERED: POTASSIUM CL 10 MEQ TAB PO ONE (08:37)
[2017-06-01] MEDS ORDERED: MAGNESIUM SULF 1 GM/DEXTROSE 100 ML IV ONE ×2 (08:37→18:00)
[2017-06-01] MEDS ORDERED: Herbals/Supplements -Info Only PO SCH (09:00)
[2017-06-01] MEDS ORDERED: NON-FORMULARY NEW DRUG (Vitamin B Complex [Super B-50 Complex] 1 EACH) PO SCH (09:00)
[2017-06-01] MEDS ORDERED: DILTIAZEM XR 240 MG CAP PO SCH (09:00)
[2017-06-01] MEDS: VITAMIN B COMPLEX 1 EA CAP/TAB PO SCH (09:11)
[2017-06-01] MEDS: ENOXAPARIN 40 MG/0.4 ML SYR SC SCH (09:12)
[2017-06-01] MEDS: PANTOPRAZOLE SODIUM 40 MG TAB PO SCH (09:12)
[2017-06-01] MEDS: DILTIAZEM XR 240 MG CAP PO SCH (09:12)
[2017-06-01] MEDS: FAMOTIDINE 20 MG TAB PO SCH (09:13)
[2017-06-01] MEDS: FERROUS SULFATE 325 MG TAB PO SCH ×2 (09:13→21:00)
[2017-06-01] MEDS: TIOTROPIUM INHALER 18 MCG/DOSE 5 DOSE/MDI IH SCH (09:23)
[2017-06-01] MEDS: FLUTICASONE/SALMETER 250/50MCG DISKUS IH SCH (09:30)
--- NOTE | 2017-06-01 13:28 | HOSPPROG ---
Hospitalist Progress Note Assessment/Plan: #Hypokalemia #Hypomagnesemia #Generalized Weakness #COPD #Likely malnutrition #Chronic Alcoholism Plan: -cont with Mg and K replacement -Etiology is likely nutrition -Dietary to eval -cont scheduled beer -PT/OT -Lovenox for DVT proph -cont inpatient Subjective: Feels abot the same. Still weak. Objective: Vital Signs Temp Pulse Resp BP Pulse Ox 36.7 C 91 15 112/76 96 06/01/17 10:51 06/01/17 10:51 06/01/17 10:51 06/01/17 10:51 06/01/17 10:51 Laboratory Results 06/01/17 03:20 05/31/17 06/01/17 06/02/17 05:59 05:59 05:59 Intake Total 1080 450 Output Total 600 Balance 480 450 - Physical Exam Constitutional: no apparent distress Eyes: PERRL, EOMI Ears, Nose, Mouth, Throat: moist mucous membranes, hearing normal Cardiovascular: regular rate and rhythym, No edema Respiratory: no respiratory distress, reduced air movement Gastrointestinal: normoactive bowel sounds, soft, non-tender abdomen Genitourinary: no bladder fullness Skin: warm Musculoskeletal: generalized weakness Neurologic: AAOx3 Psychiatric: interacting appropriately, not anxious, not encephalopathic Lymph, Heme, Immunologic: No petechiae ICD10 Worksheet Patient Problems: Problems Problem Status Onset Hypokalemia Acute Hyponatremia Acute Chronic obstructive pulmonary disease with acute exacerbation Acute Rib fractures Acute Right lower lobe pneumonia Acute Severe anemia Acute Severe sepsis Acute
--- NOTE | 2017-06-01 14:36 | ASMTCMCOM ---
CM Note CM Note Notes: 06/01/2017 Case Management Note Met pt during rounds today. PT is recommending home. Per MD pt needs dietary consult. May require case management assistance at d/c for Meals on Wheels. Case Management d/c poc: Home independent with follow up as directed. Case Management to follow. Date Signed: 06/01/2017 02:34 PM Electronically Signed By:Vandana Griffith RN
--- NOTE | 2017-06-01 15:17 | PDMN ---
Medical Necessity Medical necessity: est los>2mn for hypokalemia, hypomagnesemia, generalized weakness, likely malnutrition; admit for K and Mg replacement, PT/OT, dietary consult; comorbid COPD, chronic alcoholism; per order 05/31 and progress note
[2017-06-01] MEDS ORDERED: POTASSIUM CL 20 MEQ TAB PO ONE (17:45)
[2017-06-01] MEDS: BEER 1 EACH EA PO SCH (18:04)
[2017-06-02] MEDS ORDERED: POTASSIUM CL 10 MEQ TAB PO ONE (08:05)
[2017-06-02] MEDS ORDERED: MAGNESIUM SULF 2 GM/WATER 50 ML IV ONE (08:05)
[2017-06-02] MEDS: DILTIAZEM XR 240 MG CAP PO SCH (09:07)
[2017-06-02] MEDS: PANTOPRAZOLE SODIUM 40 MG TAB PO SCH (09:07)
[2017-06-02] MEDS: VITAMIN B COMPLEX 1 EA CAP/TAB PO SCH (09:07)
[2017-06-02] MEDS: FERROUS SULFATE 325 MG TAB PO SCH ×2 (09:07→20:49)
[2017-06-02] MEDS: ENOXAPARIN 40 MG/0.4 ML SYR SC SCH (09:10)
[2017-06-02] MEDS: TIOTROPIUM INHALER 18 MCG/DOSE 5 DOSE/MDI IH SCH (09:16)
--- NOTE | 2017-06-02 12:12 | HOSPPROG ---
Hospitalist Progress Note Assessment/Plan: #Hypokalemia #Hypomagnesemia #Generalized Weakness #COPD #Likely malnutrition #Chronic Alcoholism Plan: -cont with Mg and K replacement -Etiology is likely nutrition -nutrition shakes -cont scheduled beer -PT/OT -Lovenox for DVT proph -cont inpatient, likely d/c tomorrow discussed with multiple members of team at team rounds Subjective: Still with some weakness Objective: Vital Signs Temp Pulse Resp BP Pulse Ox 36.8 C 105 H 18 132/90 H 95 06/02/17 11:20 06/02/17 11:20 06/02/17 11:20 06/02/17 11:20 06/02/17 11:20 Laboratory Results 06/02/17 03:25 06/01/17 06/02/17 06/03/17 05:59 05:59 05:59 Intake Total 1080 2050 600 Output Total 642 298 3404 Balance 480 1200 -550 - Physical Exam Constitutional: no apparent distress Eyes: PERRL, EOMI Ears, Nose, Mouth, Throat: moist mucous membranes, hearing normal Cardiovascular: regular rate and rhythym, No edema Respiratory: no respiratory distress, no rales or rhonchi Gastrointestinal: normoactive bowel sounds, soft, non-tender abdomen Genitourinary: no bladder fullness Skin: warm Psychiatric: interacting appropriately, not anxious, not encephalopathic Lymph, Heme, Immunologic: No petechiae ICD10 Worksheet Patient Problems: Problems Problem Status Onset Hypokalemia Acute Hyponatremia Acute Chronic obstructive pulmonary disease with acute exacerbation Acute Rib fractures Acute Right lower lobe pneumonia Acute Severe anemia Acute Severe sepsis Acute
[2017-06-02] MEDS: BEER 1 EACH EA PO SCH (19:14)
[2017-06-03] MEDS: TIOTROPIUM INHALER 18 MCG/DOSE 5 DOSE/MDI IH SCH (08:38)
[2017-06-03] MEDS ORDERED: POTASSIUM CL 10 MEQ TAB PO ONE (08:44)
[2017-06-03] MEDS ORDERED: MAGNESIUM SULF 2 GM/WATER 50 ML IV ONE ×2 (08:45→12:53)
[2017-06-03] MEDS: ENOXAPARIN 40 MG/0.4 ML SYR SC SCH (08:53)
[2017-06-03] MEDS: FERROUS SULFATE 325 MG TAB PO SCH ×2 (08:54→20:17)
[2017-06-03] MEDS: DILTIAZEM XR 240 MG CAP PO SCH (08:54)
[2017-06-03] MEDS: PANTOPRAZOLE SODIUM 40 MG TAB PO SCH (08:54)
[2017-06-03] MEDS: VITAMIN B COMPLEX 1 EA CAP/TAB PO SCH (08:54)
[2017-06-03] MEDS ORDERED: MAGNESIUM SULF 2 GM/WATER 50 ML BAG IV ONE (12:00)
--- NOTE | 2017-06-03 12:43 | HOSPPROG ---
Hospitalist Progress Note Assessment/Plan: #Hypokalemia #Hypomagnesemia, still low #Generalized Weakness, now at baseline, no PT needs #COPD #Likely malnutrition #Chronic Alcoholism Plan: -cont with Mg and K replacement per protocol -start schedule k, mg replacement -start MVI -nutrition shakes -cont scheduled beer -PT/OT -Lovenox for DVT proph -cont inpatient, likely d/c tomorrow discussed with multiple members of team at team rounds Subjective: Feels good. Mg still low, replacing Objective: Vital Signs Temp Pulse Resp BP Pulse Ox 36.9 C 103 H 20 120/85 H 97 06/03/17 10:52 06/03/17 10:52 06/03/17 10:52 06/03/17 10:52 06/03/17 10:52 Laboratory Results 06/03/17 03:48 06/02/17 06/03/17 06/04/17 05:59 05:59 05:59 Intake Total 2050 1100 Output Total 850 2150 Balance 1200 -1050 - Physical Exam Constitutional: no apparent distress Eyes: PERRL, EOMI Ears, Nose, Mouth, Throat: moist mucous membranes Cardiovascular: regular rate and rhythym Respiratory: no respiratory distress Gastrointestinal: normoactive bowel sounds Genitourinary: no bladder fullness Skin: warm Musculoskeletal: full muscle strength Neurologic: AAOx3 Psychiatric: interacting appropriately, not anxious, not encephalopathic ICD10 Worksheet Patient Problems: Problems Problem Status Onset Hypokalemia Acute Hyponatremia Acute Chronic obstructive pulmonary disease with acute exacerbation Acute Rib fractures Acute Right lower lobe pneumonia Acute Severe anemia Acute Severe sepsis Acute
[2017-06-03] MEDS ORDERED: POTASSIUM CL 20 MEQ/15 ML UDCUP PO SCH (12:45)
[2017-06-03] MEDS ORDERED: POTASSIUM CL 20 MEQ TAB ONE (14:01)
[2017-06-03] MEDS: MAGNESIUM OXIDE 400 MG TAB PO SCH ×2 (14:07→20:17)
[2017-06-03] MEDS: POTASSIUM CL 20 MEQ PKT PO SCH (14:07)
[2017-06-03] MEDS: MULTIVITAMINS 1 EACH TAB PO SCH (14:08)
--- NOTE | 2017-06-03 15:15 | ASMTCMCOM ---
CM Note CM Note Notes: Spoke with RN & MD; anticipate dc home tomorrow. Pt will discharge home independently. States he will have a ride at time of dc. Pt denies need for Meals on Wheels info; states he "lives next to the [employer] in [place]". No ther needs at this time. CM available if needs/changes. Date Signed: 06/03/2017 03:14 PM Electronically Signed By:Elodia Peralta RN
[2017-06-03] MEDS: BEER 1 EACH EA PO SCH (19:49)
[2017-06-04] MEDS ORDERED: MAGNESIUM SULF 1 GM/DEXTROSE 100 ML IV ONE ×2 (07:15→12:11)
[2017-06-04] MEDS: TIOTROPIUM INHALER 18 MCG/DOSE 5 DOSE/MDI IH SCH (09:05)
[2017-06-04] MEDS: POTASSIUM CL 20 MEQ PKT PO SCH (09:22)
[2017-06-04] MEDS: MAGNESIUM OXIDE 400 MG TAB PO SCH ×2 (09:22→20:59)
[2017-06-04] MEDS: ENOXAPARIN 40 MG/0.4 ML SYR SC SCH (09:22)
[2017-06-04] MEDS: VITAMIN B COMPLEX 1 EA CAP/TAB PO SCH (09:23)
[2017-06-04] MEDS: DILTIAZEM XR 240 MG CAP PO SCH (09:23)
[2017-06-04] MEDS: PANTOPRAZOLE SODIUM 40 MG TAB PO SCH (09:23)
[2017-06-04] MEDS: MULTIVITAMINS 1 EACH TAB PO SCH (09:23)
[2017-06-04] MEDS: FERROUS SULFATE 325 MG TAB PO SCH ×2 (09:23→20:59)
[2017-06-04] MEDS ORDERED: NS 1,000 ML IV SCH (12:15)
--- NOTE | 2017-06-04 14:09 | ASMTCMCOM ---
CM Note CM Note Notes: 06/04/2017 Case Management Note Reviewed pt in rounds today. PT recommending home. Case Management d/c poc: home with follow up as directed. Case Management available if needs change. Date Signed: 06/04/2017 02:08 PM Electronically Signed By:Vandana Griffith RN
--- NOTE | 2017-06-04 17:22 | HOSPPROG ---
Hospitalist Progress Note Assessment/Plan: * Severe hypokalemia/hypomag -continue to replete -unclear why these are so low -patient denies poor PO intake or excessive Etoh * Tachycardia -ddimer very elevated - check CT chest rule out PE -? dehydration - start IVF -check TSH/FT4 * COPD - chronic O2 * Etoh - patient denies heavy use - refusing beer ordered here * PUD - healing ulcers on recent EGD -continue PPI Subjective: Gets SOB with activity Objective: Vital Signs Temp Pulse Resp BP Pulse Ox 37.2 C 107 H 22 H 138/96 H 97 06/04/17 15:55 06/04/17 15:55 06/04/17 15:55 06/04/17 15:55 06/04/17 15:55 Laboratory Results 06/04/17 03:25 06/03/17 06/04/17 06/05/17 05:59 05:59 05:59 Intake Total 1100 1140 Output Total 2150 1300 Balance -1050 -160 Laboratory Tests 06/04/17 06/04/17 03:25 12:28 D-Dimer 2.56 H Potassium 4.0 Magnesium 1.5 L CXR viewed, my personal interpretation is - negative - Physical Exam Constitutional: no apparent distress, appears nourished, not in pain Cardiovascular: regular rate and rhythym, no murmur, rub, or gallop Respiratory: no respiratory distress, no rales or rhonchi, clear to auscultation Gastrointestinal: normoactive bowel sounds, soft, non-tender abdomen, no palpable masses Skin: no rashes or abrasions, no fluctuance, no induration Neurologic: AAOx3, sensation intact bilaterally Psychiatric: interacting appropriately, not anxious, not encephalopathic, thought process linear ICD10 Worksheet Patient Problems: Problems Problem Status Onset Hypokalemia Acute Hyponatremia Acute Chronic obstructive pulmonary disease with acute exacerbation Acute Rib fractures Acute Right lower lobe pneumonia Acute Severe anemia Acute Severe sepsis Acute
[2017-06-04] MEDS ORDERED: IOPAMIDOL (ISOVUE 370) 100 ML BTL IV ONE (17:36)
[2017-06-04] MEDS ORDERED: POTASSIUM CL 10 MEQ TAB PO ONE (19:59)
[2017-06-04] MEDS: POTASSIUM CL 20 MEQ TAB PO SCH (20:59)
[2017-06-05 05:05] LABS: PLATELET COUNT 230 10^3/uL (150-400)
[2017-06-05 05:15] LABS: INR 0.92 (0.83-1.16); PROTIME(PATIENT) 12.6 SEC (12.0-15.0)
[2017-06-05 08:09] LABS: HEPATITIS B SURFACE ANTIGEN NEGATIVE (NEGATIVE)
[2017-06-05 08:15] LABS: HEPATITIS A ANTIBODY IGM (BCH) NEGATIVE (NEGATIVE); HEPATITIS B CORE AB IGM NEGATIVE (NEGATIVE)
[2017-06-05 08:26] LABS: HEPATITIS C ANTIBODY TOTAL REACTIVE (NEGATIVE)
[2017-06-05] MEDS ORDERED: POTASSIUM CL 10 MEQ TAB PO ONE (08:34)
[2017-06-05] MEDS: TIOTROPIUM INHALER 18 MCG/DOSE 5 DOSE/MDI IH SCH (08:35)
[2017-06-05] MEDS ORDERED: MAGNESIUM SULF 2 GM/WATER 50 ML IV ONE ×3 (08:37→09:10)
[2017-06-05] MEDS: DILTIAZEM XR 240 MG CAP PO SCH (09:35)
[2017-06-05] MEDS: VITAMIN B COMPLEX 1 EA CAP/TAB PO SCH (09:35)
[2017-06-05] MEDS: FERROUS SULFATE 325 MG TAB PO SCH (09:35)
[2017-06-05] MEDS: POTASSIUM CL 20 MEQ TAB PO SCH (09:35)
[2017-06-05] MEDS: MAGNESIUM OXIDE 400 MG TAB PO SCH (09:36)
[2017-06-05] MEDS: MULTIVITAMINS 1 EACH TAB PO SCH (09:36)
[2017-06-05] MEDS: ENOXAPARIN 40 MG/0.4 ML SYR SC SCH (09:36)
[2017-06-05] MEDS: PANTOPRAZOLE SODIUM 40 MG TAB PO SCH (09:36)
[2017-06-05 11:09] VITALS: BP 105/77; PULSE 109; RESP 13; TEMP 98.5; O2SAT 94
--- NOTE | 2017-06-05 18:25 | GDS ---
[f rep st] DISCHARGE SUMMARY DISCHARGE DIAGNOSES: 1. Severe hypokalemia and hypomagnesemia. 2. Chronic obstructive pulmonary disease with chronic respiratory failure, on oxygen. 3. 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 4. Peptic ulcer disease with healing ulcers noted on recent esophagogastroduodenoscopy. 5. 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 HISTORY: The patient is a 62-year-old male, who was sent to the emergency room by his primary care tho [place] when he was noted to have a very low potassium and magnesium on outpatient laboratory testing. Etiology for his low electrolytes is unclear although suspected to be poor oral intake and alcohol u se. These were repleted aggressively per protocol and have normalized at the time of discharge, will need ongoing close outpatient following. He did run tachycardic throughout most of his hospitalization. There was probably an element of dehy dration as improved with IV fluids. CT scan of chest was negative for PE. We incidentally noted a c irrhotic liver. His hep C antibody was positive. He also has a history of previous heavy alcohol us e. He is currently drinking only 2 beers per day but he was counseled at length regarding need for c omplete cessation, and he seems motivated at this time. He did successfully give up smoking and feel s like he can now tackle the drinking. Incidentally noted on abdominal ultrasound is a hydrops gallb ladder, although his LFTs were normal. He denies any right upper quadrant pain, so I do not think an ything further needs to be done at this time. DISCHARGE MEDICATIONS: Please see computer record for full detailed list. New medications: Magnesi um oxide 400 mg p.o. twice daily, he will continue his Klor-Con (potassium) 20 mEq p.o. twice daily. ADDITIONAL DISCHARGE INSTRUCTIONS: 1. Repeat labs with Dr. Bustos in 2 days, on , June 07. Basic metabolic panel, magn esium level recommended. 2. Complete alcohol cessation recommended due to finding of cirrhosis of the liver. 3. Outpatient followup with Gastroenterology regarding hepatitis C and liver cirrhosis. 4. Fluid restriction, 1500 cc per day for history of hyponatremia consistent with SIADH. Greater than 30 minutes' time was spent arranging this discharge. Patient seen and examined by me on the day of discharge. /[id number]/MODL
== END 2017-06-05 16:28 | disposition home or self-care (01) | DRG 641 ==
LOC: F2W 11:59 → OBSVTOIN 12:19
PROVIDERS: ADMIT Internal Medicine; ATTEND Internal Medicine
DX: E87.6 Hypokalemia (principal); J96.11 Chronic respiratory failure with hypoxia; E22.2 Syndrome of inappropriate secretion of antidiuretic hormone; E83.42 Hypomagnesemia; J44.9 Chronic obstructive pulmonary disease, unspecified; F10.20 Alcohol dependence, uncomplicated; K70.30 Alcoholic cirrhosis of liver without ascites; B19.20 Unspecified viral hepatitis C without hepatic coma; K27.9 Peptic ulcer, site unspecified, unspecified as acute or chronic, without hemorrhage or perforation; E86.0 Dehydration; D50.9 Iron deficiency anemia, unspecified; I10 Essential (primary) hypertension; Z87.891 Personal history of nicotine dependence
CPT/HCPCS: 84134-90; 96374; 97161-GP; 97165-GO; G0472; G8987-GO-CI; G8988-GO-CI; G8989-GO-CI; J1650; J3475; J3480; Q9967

== ENCOUNTER → 2018-06-05 | Outpatient (CLI) | payer MEDICAID | LOC: FIMAGING 10:31 | PROVIDERS: ATTEND Internal Medicine | DX: B19.20 Unspecified viral hepatitis C without hepatic coma (principal) ==

== ENCOUNTER → 2018-08-07 | Outpatient (CLI) | payer MEDICAID | LOC: FIMAGING 12:49 | PROVIDERS: ATTEND Internal Medicine Critical Care Medicine | DX: J44.9 Chronic obstructive pulmonary disease, unspecified (principal); I25.83 Coronary atherosclerosis due to lipid rich plaque; Z87.81 Personal history of (healed) traumatic fracture ==